=== PATIENT | female | born 1940 | race Caucasian/White ===

== ENCOUNTER → 2016-10-25 | Outpatient (CLI) | payer MEDICARE ==
--- NOTE | 2016-10-25 16:00 | US ---
EXAMINATION TYPE: US thyroid st tissue head/neck DATE OF EXAM: 10/25/2016 3:19 PM COMPARISON: 04/05/2016 CLINICAL HISTORY: 76-year-old female, follow up TECHNIQUE: Multiple sonographic images of the thyroid gland are obtained. FINDINGS: GLAND SIZE: Right Lobe: 4.6 x 2.1 x 2.2 cm Left Lobe: 4.9 x 1.7 x 1.8 cm Isthmus Thickness: 0.4 cm There is heterogeneous glandular parenchyma. NODULES RIGHT: # of nodules measured on right: 2 1. 1.6 X 1.2 x 1.3 cm heterogeneous, primarily solid nodule at the mid pole. This shows intranwider than tallity. Priintranodular vascularity3 cm 2. 1.2 X 1.1.7x 11.9cm 1.3heterogeneous, primarily solid nodule within the posterior lower pole. Thi s nodule shows intrataller than wideity. Printranodular vascularity.4 cm . LEFT: 1.2f n1.ules1.easured on left: 0 ISTHMUS: # of nodules [id number] in the isthmus: 1 1. 0.7 X 0.4 x 0.8 cm hypoechoic solid no0.4e towards the right. Thpoorly definedider than l and s hows intranwider than tallity. Prior 0.8 x 0.6 x 0.8 cm IMPRESSION: 1. A total of 2 nodules redemonstrated within the right lobe of the thyroid gland measuring up to 1.6 cm; these are essentially stable. 2. Solitary 8 mm solid nodule within the right thyroid isthmus is also stable.
== END | disposition home or self-care (01) ==
LOC: RADUSWWP 14:51
PROVIDERS: ATTEND Internal Medicine Endocrinology, Diabetes & Metabolism
DX: E04.2 Nontoxic multinodular goiter (principal)
CPT/HCPCS: 76536

== ENCOUNTER → 2016-12-04 | Outpatient (CLI) | payer MEDICARE ==
[~2016-12-04] MED LIST: DENOSUMAB 60 MG/ML 1 ML SYRINGE SQ ONE
[2016-12-04 09:18] VITALS: BP 137/62; PULSE 64; RESP 16; TEMP 98.7
== END | disposition home or self-care (01) ==
LOC: PROCWHC3 08:49
PROVIDERS: ATTEND Family Medicine
DX: M81.0 Age-related osteoporosis without current pathological fracture (principal)
CPT/HCPCS: 96372; J0897

== ENCOUNTER → 2017-03-01 | Outpatient (CLI) | payer MEDICARE ==
[2017-03-01 09:13] LABS: Appearance,Urine Cloudy (Clear); Bacteria,Urine Many /hpf; Bilirubin,Urine Negative (Negative); Glucose,Urine (UA) Negative (Negative); Ketones,Urine Negative (Negative); Leukocyte Esterase,Urine Large (Negative); Mucus,Urine Rare /hpf; Nitrite,Urine Negative (Negative); Particle Count 2601; Protein,Urine 1+ (Negative); RBC,Urine 10 /hpf (0-5); Specific Gravity,Urine 1.013 (1.001-1.035); UA Billing (MACRO vs. MICRO) MICRO; Urobilinogen,Urine <2.0 mg/dL (<2.0); WBC,Urine >182 /hpf (0-5)
[2017-03-01 09:17] LABS: Basophils # (A) 0.1 k/uL (0-0.2); Basophils % (A) 1 %; CH 28.7; Eosinophils # (A) 0.2 k/uL (0-0.7); Eosinophils % (A) 3 %; HCT 38.1 % (34.0-46.0); HDW 2.81; HGB 12.2 gm/dL (11.4-16.0); Luc # (Auto) 0.13; Luc % (Auto) 2; Lymphocytes # (A) 1.1 k/uL (1.0-4.8); Lymphocytes % (A) 18 %; MCH 28.9 pg (25.0-35.0); MCV 90.2 fL (80.0-100.0); Mean Platelet Volume 6.9; Monocytes # (A) 0.3 k/uL (0-1.0); Monocytes % (A) 5 %; Neutrophils # (A) 4.7 k/uL (1.3-7.7); Neutrophils % (A) 72 %; RBC 4.22 m/uL (3.80-5.40); WBC 6.5 k/uL (3.8-10.6); WBC (Perox) 6.92
[2017-03-01 12:29] LABS: Calcium 9.2 mg/dL (8.4-10.2); Magnesium 2.3 mg/dL (1.6-2.3); Phosphorous 4.7 mg/dL (2.5-4.5); Potassium 5.2 mmol/L (3.5-5.1); Uric Acid 5.1 mg/dL (3.7-7.4)
[2017-03-01 12:37] LABS: % Iron Saturation 35.6 % (20-50)
== END | disposition home or self-care (01) ==
LOC: LABWHC1 08:16
PROVIDERS: ATTEND Nurse Practitioner Family
DX: E21.3 Hyperparathyroidism, unspecified (principal); D64.9 Anemia, unspecified; E55.9 Vitamin D deficiency, unspecified; M10.9 Gout, unspecified; N39.0 Urinary tract infection, site not specified; N18.3 Chronic kidney disease, stage 3 (moderate)
CPT/HCPCS: 36415; 80048; 81001; 82306; 82728; 83540; 83550; 83735; 83970; 84100; 84550; 85025

== ENCOUNTER → 2017-03-18 | Outpatient (CLI) | payer MEDICARE ==
[2017-03-18 11:03] LABS: Calcium 9.7 mg/dL (8.4-10.2); Potassium 4.6 mmol/L (3.5-5.1)
== END | disposition home or self-care (01) ==
LOC: LABWHC1 09:45
PROVIDERS: ATTEND Internal Medicine Nephrology
DX: N18.3 Chronic kidney disease, stage 3 (moderate) (principal)
CPT/HCPCS: 36415; 80048

== ENCOUNTER → 2017-05-02 | Outpatient (CLI) | payer MEDICARE ==
[2017-05-02 08:57] LABS: Basophils # (A) 0.1 k/uL (0-0.2); Basophils % (A) 1 %; CH 28.2; Eosinophils # (A) 0.1 k/uL (0-0.7); Eosinophils % (A) 2 %; HCT 36.2 % (34.0-46.0); HDW 2.88; HGB 11.7 gm/dL (11.4-16.0); Luc % (Auto) 2; Lymphocytes # (A) 1.2 k/uL (1.0-4.8); Lymphocytes % (A) 17 %; MCH 28.6 pg (25.0-35.0); MCHC 32.2 g/dL (31.0-37.0); MCV 88.7 fL (80.0-100.0); Mean Platelet Volume 7.3; Monocytes # (A) 0.3 k/uL (0-1.0); Monocytes % (A) 5 %; Neutrophils % (A) 74 %; RBC 4.08 m/uL (3.80-5.40); RDW 14.7 % (11.5-15.5); WBC 6.7 k/uL (3.8-10.6); WBC (Perox) 7.07
[2017-05-02 09:23] LABS: Appearance,Urine Cloudy (Clear); Bacteria,Urine Rare /hpf; Bilirubin,Urine Negative (Negative); Glucose,Urine (UA) Negative (Negative); Granular Casts,Urine 1 /lpf (0); Ketones,Urine Negative (Negative); Leukocyte Esterase,Urine Large (Negative); Mucus,Urine Rare /hpf; Nitrite,Urine Negative (Negative); Particle Count 10009; Protein,Urine Trace (Negative); RBC,Urine 13 /hpf (0-5); Specific Gravity,Urine 1.013 (1.001-1.035); Squamous Epithelial Cell,Urine 4 /hpf (0-4); UA Billing (MACRO vs. MICRO) MICRO; Urobilinogen,Urine <2.0 mg/dL (<2.0); WBC,Urine 36 /hpf (0-5)
[2017-05-02 10:31] LABS: Calcium 8.4 mg/dL (8.4-10.2); Magnesium 2.2 mg/dL (1.6-2.3); Phosphorous 3.5 mg/dL (2.5-4.5); Uric Acid 4.1 mg/dL (3.7-7.4)
[2017-05-02 10:41] LABS: % Iron Saturation 19.6 % (20-50)
== END | disposition home or self-care (01) ==
LOC: LABWHC1 08:24
PROVIDERS: ATTEND Internal Medicine Nephrology
DX: N18.3 Chronic kidney disease, stage 3 (moderate) (principal); D64.9 Anemia, unspecified; E55.9 Vitamin D deficiency, unspecified; E21.3 Hyperparathyroidism, unspecified; M10.9 Gout, unspecified; N39.0 Urinary tract infection, site not specified
CPT/HCPCS: 36415; 80048; 81001; 82306; 82728; 83540; 83550; 83735; 83970; 84100; 84550; 85025

== ENCOUNTER 2017-05-22 13:39 | Inpatient (IN) | payer MEDICARE ==
[2017-05-22 15:17] LABS: Basophils # (A) 0.1 k/uL (0-0.2); Basophils % (A) 1 %; CH 29.7; CHCM 33.3; Eosinophils # (A) 0.1 k/uL (0-0.7); Eosinophils % (A) 1 %; HCT 36.9 % (34.0-46.0); HDW 2.89; HGB 11.8 gm/dL (11.4-16.0); Luc # (Auto) 0.12; Luc % (Auto) 2; Lymphocytes # (A) 1.4 k/uL (1.0-4.8); Lymphocytes % (A) 18 %; MCH 28.7 pg (25.0-35.0); MCV 89.6 fL (80.0-100.0); Mean Platelet Volume 7.6; Monocytes # (A) 0.3 k/uL (0-1.0); Monocytes % (A) 4 %; Neutrophils # (A) 5.7 k/uL (1.3-7.7); Neutrophils % (A) 74 %; RBC 4.11 m/uL (3.80-5.40); RDW 15.2 % (11.5-15.5); WBC 7.7 k/uL (3.8-10.6); WBC (Perox) 7.71
--- NOTE | 2017-05-22 15:24 | XR ---
EXAMINATION TYPE: XR chest 2V DATE OF EXAM: 05/22/2017 COMPARISON: 10/20/2012 TECHNIQUE: PA and lateral views submitted. HISTORY: Difficulty breathing FINDINGS: There is elevation the right hemidiaphragm with subsegmental consolidation. Linear changes left lung base most typical atelectasis. No pneumothorax. Heart size stable. Atherosclerotic change aorta and d iffuse osteopenia. Arthropathy of the shoulders. Hypertrophic and degenerative changes of the spine. Surgical clips are seen in the abdomen. IMPRESSION: 1. Subsegmental right. Hilar lower lobe atelectasis or early infiltrate correlate clinically.
[2017-05-22 15:26] LABS: Calcium 9.6 mg/dL (8.4-10.2); Total Bilirubin 0.4 mg/dL (0.2-1.3); Total Protein 6.6 g/dL (6.3-8.2)
[2017-05-22 15:27] LABS: INR 0.9 (<1.2); Partial Thromboplastin Time 24.7 sec (22.0-30.0); Prothrombin Time 9.7 sec (9.0-12.0)
[2017-05-22 15:39] LABS: Creatine Kinase 58 U/L (30-135)
[2017-05-22 15:52] LABS: Creatine Kinase MB 2.3 ng/mL (0.0-2.4); Troponin I <0.012 ng/mL (0.000-0.034)
[2017-05-22 15:53] LABS: Appearance,Urine Clear (Clear); Bacteria,Urine Rare /hpf; Bilirubin,Urine Negative (Negative); Glucose,Urine (UA) Negative (Negative); Ketones,Urine Negative (Negative); Leukocyte Esterase,Urine Moderate (Negative); Mucus,Urine Rare /hpf; Nitrite,Urine Negative (Negative); Particle Count 894; Protein,Urine Negative (Negative); RBC,Urine 1 /hpf (0-5); Specific Gravity,Urine 1.004 (1.001-1.035); Squamous Epithelial Cell,Urine <1 /hpf (0-4); UA Billing (MACRO vs. MICRO) MICRO; Urobilinogen,Urine <2.0 mg/dL (<2.0); WBC,Urine 5 /hpf (0-5)
[2017-05-22] MEDS ORDERED: RX INFO: IV CONTRAST WAS GIVEN 1 EACH MISC MISCELLANE PRN (16:25)
[2017-05-22] MEDS ORDERED: PNEUMONIA PROTOCOL UTILIZED 1 EACH MISC PO PRN (16:30)
[2017-05-22] MEDS ORDERED: AZITHROMYCIN 500 MG in SODIUM CHLORIDE 0.9% 250 ML IVPB STA (16:30)
[2017-05-22] MEDS ORDERED: IPRATROPIUM-ALBUTEROL 3 ML NEB INHALATION PRN (16:30)
--- NOTE | 2017-05-22 16:48 | ED ---
General Adult HPI - General Chief complaint: Shortness of Breath Stated complaint: SOB Time Seen by Provider: 05/22/17 13:59 Source: patient, RN notes reviewed Mode of arrival: ambulatory Limitations: no limitations - History of Present Illness Initial comments: 77-year-old female presents with 2 days of worsening dyspnea. Patient does state she had some right shoulder and neck pain which was nontraumatic. This is resolved. She denies chest pain. Denies fever or chills. Denies cough. Shortness of breath is worse with exertion, worse while lying flat. She does have a past medical history of diabetes, CK-MB, and hypertension. There is no known history of CAD. No complaints of lower extremity swelling. No recent travel. - Related Data Home Medications Medication Instructions Recorded Confirmed Allopurinol [Zyloprim] 300 mg PO DAILY 04/22/14 05/22/17 Calcium Citrate/Vitamin D3 1 each PO DAILY 04/22/14 05/22/17 [Calcium Citrate - Vit D3 Tab] Ergocalciferol [Vitamin D2 50,000 unit PO Q30D 04/22/14 05/22/17 (DRISDOL)] Insulin Aspart [NovoLOG] See Protocol SQ ACHS PRN 04/22/14 05/22/17 Insulin Detemir [Levemir] 20 unit SQ HS 04/22/14 05/22/17 Simvastatin [Zocor] 40 mg PO HS 04/22/14 05/22/17 Aspirin EC [Ecotrin] 81 mg PO HS 04/25/15 05/22/17 Denosumab [Prolia] 60 mg SQ ONCE 12/30/15 05/22/17 amLODIPine [Norvasc] 5 mg PO DAILY 12/30/15 05/22/17 Calcitriol [Rocaltrol] 0.25 mcg PO MOWEFR 05/22/17 05/22/17 Lisinopril [Zestril] 2.5 mg PO HS 05/22/17 05/22/17 Sodium Bicarbonate Tab 650 mg PO DAILY 05/22/17 05/22/17 Turmeric Root Extract [Turmeric] 500 mg PO DAILY 05/22/17 05/22/17 Allergies Allergy/AdvReac Type Severity Reaction Status Date / Time celecoxib [From Celebrex] Allergy Rash/Hives Verified 05/22/17 14:18 Sulfa (Sulfonamide Allergy Rash/Hives Verified 05/22/17 14:18 Antibiotics) valdecoxib [From Bextra] Allergy Rash/Hives Verified 05/22/17 14:18 metformin AdvReac Nausea Verified 05/22/17 14:18 Review of Systems ROS Statement: Those systems with pertinent positive or pertinent negative responses have been documented in the HPI. ROS Other: All systems not noted in ROS Statement are negative. Past Medical History Past Medical History: Cancer, Diabetes Mellitus, Hyperlipidemia, Hypertension, Renal Disease, Sleep Apnea/CPAP/BIPAP Additional Past Medical History / Comment(s): skin cancer, kidney stones History of Any Multi-Drug Resistant Organisms: None Reported Past Surgical History: Bowel Resection Additional Past Surgical History / Comment(s): ileostomy, rectal removal, left kidney removed Past Anesthesia/Blood Transfusion Reactions: No Reported Reaction Past Psychological History: No Psychological Hx Reported Smoking Status: Former smoker Past Alcohol Use History: None Reported Past Drug Use History: None Reported General Exam Limitations: no limitations General appearance: alert (Mild respiratory distress), in distress Head exam: Present: atraumatic, normocephalic Eye exam: Present: normal appearance, PERRL. Absent: scleral icterus ENT exam: Present: normal exam, mucous membranes moist Neck exam: Present: normal inspection, full ROM Respiratory exam: Present: normal lung sounds bilaterally, respiratory distress. Absent: wheezes Cardiovascular Exam: Present: regular rate, normal rhythm, normal heart sounds GI/Abdominal exam: Present: soft, distended Extremities exam: Present: normal inspection, normal capillary refill. Absent: pedal edema, calf tenderness Neurological exam: Present: alert, oriented X3, CN II-XII intact. Absent: motor sensory deficit Psychiatric exam: Present: normal affect, normal mood Skin exam: Present: warm, dry. Absent: cyanosis, diaphoretic Course Vital Signs 05/22/17 05/22/17 05/22/17 13:41 14:09 14:43 Temperature 97.6 F Pulse Rate 85 100 Respiratory 20 18 20 Rate Blood Pressure 199/86 158/97 O2 Sat by Pulse 94 L 100 Oximetry 05/22/17 16:25 Temperature 97.7 F Pulse Rate 68 Respiratory 18 Rate Blood Pressure 158/68 O2 Sat by Pulse 97 Oximetry EKG Findings - EKG Comments: EKG Findings:: EKG shows normal sinus rhythm, ventricular rate of 72, ID interval 184, QRS duration 98, QTC 418, is T-wave abnormality noted in lead 3, no ST segment elevation or depression Medical Decision Making - Medical Decision Making 77-year-old female presenting with dyspnea over the past several days. Worse while lying flat, and with exertion. Patient denies chest pain but did have some right shoulder and neck pain which is resolved at this time. Laboratory studies reveal normal CBC, CMP, cardiac enzymes and BNP. D-dimer is negative, however there is still some concern for pulmonary embolism. Patient will receive CT angiography while in the emergency department to evaluate for PE. Chest x-ray shows right hilar infiltrate concerning for pneumonia. Patient will be started on antibiotics to cover community-acquired pneumonia. She will be admitted to the hospital for dyspnea secondary to pneumonia with hypoxia. CT angiography is pending results will be signed out to the oncoming physician Dr. Shen. Diagnosis: Community acquired pneumonia with hypoxia - Lab Data Result diagrams: 05/22/17 14:05 05/22/17 14:05 Lab Results 05/22/17 05/22/17 05/22/17 Range/Units 14:05 14:05 14:05 WBC 7.7 (3.8-10.6) k/uL RBC 4.11 (3.80-5.40) m/uL Hgb 11.8 (11.4-16.0) gm/dL Hct 36.9 (34.0-46.0) % MCV 89.6 (80.0-100.0) fL MCH 28.7 (25.0-35.0) pg MCHC 32.0 (31.0-37.0) g/dL RDW 15.2 (11.5-15.5) % Plt Count 160 (150-450) k/uL Neutrophils % 74 % Lymphocytes % 18 % Monocytes % 4 % Eosinophils % 1 % Basophils % 1 % Neutrophils # 5.7 (1.3-7.7) k/uL Lymphocytes # 1.4 (1.0-4.8) k/uL Monocytes # 0.3 (0-1.0) k/uL Eosinophils # 0.1 (0-0.7) k/uL Basophils # 0.1 (0-0.2) k/uL PT (9.0-12.0) sec INR (<1.2) APTT (22.0-30.0) sec D-Dimer (<0.60) mg/L FEU Sodium 140 (137-145) mmol/L Potassium 4.0 (3.5-5.1) mmol/L Chloride 109 H (98-107) mmol/L Carbon Dioxide 21 L (22-30) mmol/L Anion Gap 10 mmol/L BUN 24 H (7-17) mg/dL Creatinine 1.27 H (0.52-1.04) mg/dL Est GFR (MDRD) Af Amer 50 (>60 ml/min/1.73 sqM) Est GFR (MDRD) Non-Af 41 (>60 ml/min/1.73 sqM) Glucose 77 (74-99) mg/dL Calcium 9.6 (8.4-10.2) mg/dL Total Bilirubin 0.4 (0.2-1.3) mg/dL AST 18 (14-36) U/L ALT 29 (9-52) U/L Alkaline Phosphatase 68 (38-126) U/L Total Creatine Kinase 58 (30-135) U/L CK-MB (CK-2) 2.3 (0.0-2.4) ng/mL CK-MB (CK-2) Rel Index 4.0 Troponin I <0.012 (0.000-0.034) ng/mL NT-Pro-B Natriuret Pep pg/mL Total Protein 6.6 (6.3-8.2) g/dL Albumin 4.1 (3.5-5.0) g/dL Urine Color Urine Appearance (Clear) Urine pH (5.0-8.0) Ur Specific [place] (1.001-1.035) Urine Protein (Negative) Urine Glucose (UA) (Negative) Urine Ketones (Negative) Urine Blood (Negative) Urine Nitrite (Negative) Urine Bilirubin (Negative) Urine Urobilinogen (<2.0) mg/dL Ur Leukocyte Esterase (Negative) Urine RBC (0-5) /hpf Urine WBC (0-5) /hpf Ur Squamous Epith Cells (0-4) /hpf Urine Bacteria (None) /hpf Urine Mucus (None) /hpf 05/22/17 05/22/17 05/22/17 Range/Units 14:05 14:05 15:46 WBC (3.8-10.6) k/uL RBC (3.80-5.40) m/uL Hgb (11.4-16.0) gm/dL Hct (34.0-46.0) % MCV (80.0-100.0) fL MCH (25.0-35.0) pg MCHC (31.0-37.0) g/dL RDW (11.5-15.5) % Plt Count (150-450) k/uL Neutrophils % % Lymphocytes % % Monocytes % % Eosinophils % % Basophils % % Neutrophils # (1.3-7.7) k/uL Lymphocytes # (1.0-4.8) k/uL Monocytes # (0-1.0) k/uL Eosinophils # (0-0.7) k/uL Basophils # (0-0.2) k/uL PT 9.7 (9.0-12.0) sec INR 0.9 (<1.2) APTT 24.7 (22.0-30.0) sec D-Dimer 0.28 (<0.60) mg/L FEU Sodium (137-145) mmol/L Potassium (3.5-5.1) mmol/L Chloride (98-107) mmol/L Carbon Dioxide (22-30) mmol/L Anion Gap mmol/L BUN (7-17) mg/dL Creatinine (0.52-1.04) mg/dL Est GFR (MDRD) Af Amer (>60 ml/min/1.73 sqM) Est GFR (MDRD) Non-Af (>60 ml/min/1.73 sqM) Glucose (74-99) mg/dL Calcium (8.4-10.2) mg/dL Total Bilirubin (0.2-1.3) mg/dL AST (14-36) U/L ALT (9-52) U/L Alkaline Phosphatase (38-126) U/L Total Creatine Kinase (30-135) U/L CK-MB (CK-2) (0.0-2.4) ng/mL CK-MB (CK-2) Rel Index Troponin I (0.000-0.034) ng/mL NT-Pro-B Natriuret Pep 153 pg/mL Total Protein (6.3-8.2) g/dL Albumin (3.5-5.0) g/dL Urine Color Colorless Urine Appearance Clear (Clear) Urine pH 5.0 (5.0-8.0) Ur Specific [place] 1.004 (1.001-1.035) Urine Protein Negative (Negative) Urine Glucose (UA) Negative (Negative) Urine Ketones Negative (Negative) Urine Blood Negative (Negative) Urine Nitrite Negative (Negative) Urine Bilirubin Negative (Negative) Urine Urobilinogen <2.0 (<2.0) mg/dL Ur Leukocyte Esterase Moderate H (Negative) Urine RBC 1 (0-5) /hpf Urine WBC 5 (0-5) /hpf Ur Squamous Epith Cells <1 (0-4) /hpf Urine Bacteria Rare H (None) /hpf Urine Mucus Rare H (None) /hpf Disposition Clinical Impression: Community acquired pneumonia Disposition: ADMITTED IP TO THIS [facility] Condition: Stable Referrals: Nithin Monroe DO [Primary Care Provider] - 1-2 days Decision to Admit Reason: Admit from EC Decision Date: 05/22/17 Decision Time: 16:15
--- NOTE | 2017-05-22 17:39 | CT ---
EXAMINATION TYPE: CT angio chest DATE OF EXAM: 05/22/2017 COMPARISON: NONE HISTORY: Difficulty breathing x [address] DLP: 419.70 mGycm. Automated Exposure Control for Dose Reduction was Utilized. CONTRAST: CTA scan of the thorax is performed with IV Contrast, patient injected with 50 mL of Visipaque 320, p ulmonary embolism protocol. MIP Images are created on CT scanner and reviewed. FINDINGS: LUNGS: Elevated right hemidiaphragm is present. Motion artifact is seen making evaluation suboptimal particularly for subcentimeter nodules. There is suspicious nodule measuring 1.1 x 0.8 cm in the righ t upper lobe anteriorly on axial image 24 noted. There is additional low dense right middle lobe basi lar nodule or nodular consolidation measuring 1.1 x 1.0 cm on axial image 71. There is linear scarrin g and/or atelectasis throughout both lungs most prominent in the bases. No pleural effusion or pneumo thorax is present bilaterally. Tracheobronchial tree is patent MEDIASTINUM: There is suboptimal bolus as bright as contrast is seen pooling in SVC with no large brigido tral pulmonary embolism. Smaller segmental and subsegmental pulmonary embolism cannot be excluded on this exam. There is abnormal irregular fluid or soft tissue in the anterior superior mediastinum ante rior to the left brachiocephalic vein could reflect fluid or irregular adenopathy, Hounsfield units a re difficult to accurately measure but I get numbers between 40 and 60. Hematoma would need to be con sidered in the appropriate clinical setting. There are calcified subcentimeter paratracheal and right hilar lymph nodes seen. No pericardial effusion is seen. Heart size is mildly enlarged. There is mod erate left atrial dilatation. Coronary artery calcification is seen which is noted marker for coronar y artery disease. OTHER: There is nonspecific slight nodular thickening to left adrenal gland. Surgical clips possibly from left-sided nephrectomy are partially imaged below this. There is mild calcified plaque of the vi sualized abdominal aorta extending into the abdominal branch vessels. There is moderate multilevel sp urring in the thoracic spine. Some minimal fat stranding in bilateral axillary is present. Cannot exc lude inflammation or infectious process. IMPRESSION: 1. Suboptimal study, no large central pulmonary embolism, smaller segmental and subsegmental pulmonar y embolism cannot be excluded on this exam. 2. Cardiomegaly with moderate left atrial dilatation and elevated right hemidiaphragm. Scattered area s of atelectasis and/or scarring are seen most pronounced in the right lung. Areas of nodularity righ t lung are seen, neoplasm cannot be excluded, PET CT follow-up advised. 3. Possible small amount anterior superior mediastinal fluid or hematoma versus low dense irregular c onfluent adenopathy. Clinical correlation advised. Hemoglobin monitoring recommended.
[2017-05-22 20:48] LABS: Glucose,Whole Blood 121 mg/dL (75-99)
[2017-05-22] MEDS: ASPIRIN 81 MG PO SCH (21:14)
[2017-05-22] MEDS: ATORVASTATIN 20 MG TAB PO SCH (21:14)
[2017-05-22] MEDS: INSULIN DETEMIR 100 UNIT/ML 10 ML VIAL SQ SCH (21:15)
[2017-05-22] MEDS: INSULIN LISPRO (humaLOG) 300 UNIT/3 ML VIAL SQ SCH (21:15)
[2017-05-22] MEDS: LISINOPRIL 2.5 MG TAB PO SCH (21:15)
[2017-05-22 21:21] LABS: Hemoglobin A1C 6.5 % (4.2-6.1)
--- NOTE | 2017-05-22 23:33 | P.HPIM ---
History of Present Illness H&P Date: 05/22/17 Chief Complaint: Short of breath History of presenting complaint: This is a very pleasant 77-year-old patient of Dr. Monroe. Chronic stable medical conditions include diabetes, hyperlipidemia, hypertension, obstructive sleep apnea uses a machine, and a colostomy bag from surgery. Colitis. Patient for 2 days and getting increasingly short of breath no cough some achiness in the neck and the right shoulder area no edema no fever, no chest pain. Getting bothered hence decided to come to the ER. GEN.: Tired EYES: None HEENT: None NECK: [Right-sided neck pain and shoulder pain RESPIRATORY: As above CARDIOVASCULAR: None GASTROINTESTINAL: None GENITOURINARY: None MUSCULOSKELETAL: None LYMPHATICS: None HEMATOLOGICAL: None PSYCHIATRY: None NEUROLOGICAL: None Past medical history: Diabetes mellitus type 2, hyperlipidemia, hypertension, obstructive sleep apnea , ulcerative colitis leading to surgery and colostomy, eczema Past surgical history: 1995 bowels surgery with ileostomy, left nephrectomy lithotripsy Home medications: Reviewed in the computer ALLERGIES: Celebrex, sulfa, metformin VITAL SIGNS: 97.6, 85, 20, 199/86, 94% room air. Repeat blood pressure 150/97 GENERAL: Well-built, BMI 30.4 laying in bed not in distress,. EYES: Pupils equal. Conjunctiva normal. HEENT: External appearance of nose and ears normal, oral cavity grossly normal. NECK: JVD not raised; masses not palpable. HEART: First and second heart sounds are normal; no edema. LUNGS: Respiratory rate normal; clear to auscultation. ABDOMEN: Soft, nontender, liver spleen not palpable, no masses palpable, ileostomy in place. LYMPHATICS: No lymph nodes palpable in the axilla and neck. PSYCH: Alert and oriented x3; mood and affect normal. NEUROLOGICAL: Cranial nerves grossly intact; no facial asymmetry, power and sensation grossly intact. Investigations: White count 7.7 hemoglobin 11.8 potassium 4 be an 24 creatinine 1.27 EKG-unremarkable Chest x-ray reviewed showed elevated right diaphragm some fullness of the right hilum Chest CTA-right hemidiaphragm elevated some right lung nodules, some of the abnormal findings Assessment: -This is a patient who presents with 2 days of worsening short of breath no cough no fever no sputum production associated with elevated diaphragm on the x- ray and the computed tomography scan with some lung nodules. It's possible patient may have underlying malignancy manifesting like this. -Diabetes was type II on oral hypoglycemic Hyperlipidemia -Essential hypertension Obstructive sleep apnea uses CPAP machine -Ulcerative colitis leading to surgery with resultant ileostomy Plan: We'll order 2-D echocardiogram. Pulmonary and cardiology is consulted. Care was discussed with the patient. Additionally need a repeat computed tomography scan of the chest on a bronchoscopy for further workup.. Past Medical History Past Medical History: Cancer, Diabetes Mellitus, Hyperlipidemia, Hypertension, Renal Disease, Sleep Apnea/CPAP/BIPAP Additional Past Medical History / Comment(s): skin cancer, kidney stones, PAST ULCERATIVE COLITIS(HAD SX), ECZEMA, RT ARM FX-CASTED ,MILTON CATARACTS, LT EYE MAC DEGENERTAION History of Any Multi-Drug Resistant Organisms: None Reported Past Surgical History: Bowel Resection Additional Past Surgical History / Comment(s): 1995 BOWEL SX W/ileostomy,2011 HAD RECTUM SX CLOSED OFF, HAD A DRAINAGE TUBE PLACED LT KIDNEY TO RELIEVE SOME PRESSURE BUT ENDED UP HAVING THE left kidney removed "IT WAS A KIDNEY",D&C , LITHOTRIPSY,?APPY, COLONOSCOPY Past Anesthesia/Blood Transfusion Reactions: No Reported Reaction Smoking Status: Former smoker - Past Family History Father Family Medical History: Diabetes Mellitus Additional Family Medical History / Comment(s): ULCERATIVE COLITIS. Mother Family Medical History: Coronary Artery Disease (CAD) Additional Family Medical History / Comment(s): CARDIAC STENTS. FROM A BRAIN BLEED POST FALL Medications and Allergies Home Medications Medication Instructions Recorded Confirmed Type Allopurinol [Zyloprim] 300 mg PO DAILY 04/22/14 05/22/17 History Calcium Citrate/Vitamin D3 1 each PO DAILY 04/22/14 05/22/17 History [Calcium Citrate - Vit D3 Tab] Ergocalciferol [Vitamin D2 50,000 unit PO Q30D 04/22/14 05/22/17 History (DRISDOL)] Insulin Aspart [NovoLOG] See Protocol SQ ACHS PRN 04/22/14 05/22/17 History Insulin Detemir [Levemir] 20 unit SQ HS 04/22/14 05/22/17 History Simvastatin [Zocor] 40 mg PO HS 04/22/14 05/22/17 History Aspirin EC [Ecotrin] 81 mg PO HS 04/25/15 05/22/17 History Denosumab [Prolia] 60 mg SQ ONCE 12/30/15 05/22/17 History amLODIPine [Norvasc] 5 mg PO DAILY 12/30/15 05/22/17 History Calcitriol [Rocaltrol] 0.25 mcg PO MOWEFR 05/22/17 05/22/17 History Lisinopril [Zestril] 2.5 mg PO HS 05/22/17 05/22/17 History Sodium Bicarbonate Tab 650 mg PO DAILY 05/22/17 05/22/17 History Turmeric Root Extract [Turmeric] 500 mg PO DAILY 05/22/17 05/22/17 History Allergies Allergy/AdvReac Type Severity Reaction Status Date / Time celecoxib [From Celebrex] Allergy Rash/Hives Verified 05/22/17 14:18 Sulfa (Sulfonamide Allergy Rash/Hives Verified 05/22/17 14:18 Antibiotics) valdecoxib [From Bextra] Allergy Rash/Hives Verified 05/22/17 14:18 metformin AdvReac Nausea Verified 05/22/17 14:18 Results CBC & Chem 7: 05/22/17 14:05 05/22/17 14:05
[2017-05-23 07:21] LABS: Glucose,Whole Blood 95 mg/dL (75-99)
[2017-05-23] MEDS: SODIUM BICARBONATE TAB 650 MG TAB PO SCH (08:26)
[2017-05-23] MEDS: ALLOPURINOL 300 MG TAB PO SCH (08:26)
[2017-05-23] MEDS: amLODIPine 5 MG TAB PO SCH (08:26)
[2017-05-23] MEDS: INSULIN LISPRO (humaLOG) 300 UNIT/3 ML VIAL SQ SCH ×4 (08:27→21:54)
--- NOTE | 2017-05-23 09:16 | XR ---
EXAMINATION TYPE: XR chest 2V DATE OF EXAM: 05/23/2017 COMPARISON: 05/22/2017 TECHNIQUE: PA and lateral views submitted. HISTORY: Difficulty breathing FINDINGS: Right lower lobe infiltrate and small effusion. Cannot exclude a small nodule overlying the right upp er lobe measuring 8 mm. Left lung clear. Atherosclerotic change aorta. Stable heart size. Hypertrophi c and degenerative change of the spine. IMPRESSION: 1. Findings suspicious for a 1 cm upper lobe pulmonary nodule. This has a suspicious appearance. 2. Right lower lobe infiltrate and small effusion.
--- NOTE | 2017-05-23 11:05 | ECHOF ---
Referral Reason:SOB MEASUREMENTS -------- HEIGHT: 132.1 cm WEIGHT: 86.2 kg BP: 143/94 RVIDd: 4.2 cm (< 3.3) IVSd: 1.4 cm (0.6 - 1.1) LVIDd: 2.7 cm (3.9 - 5.3) LVPWd: 1.2 cm (0.6 - 1.1) IVSs: 1.8 cm LVIDs: 1.6 cm LVPWs: 1.7 cm LAESV Index (A-L): 39.61 ml/m Ao Diam: 2.4 cm (2.0 - 3.7) AV Cusp: 1.4 cm (1.5 - 2.6) LA Diam: 3.3 cm (2.7 - 3.8) MV EXCURSION: 10.412 mm (> 18.000) MV EF SLOPE: 67 mm/s (70 - 150) EPSS: 0.7 cm MV E Nas: 1.11 m/s MV DecT: 170 ms MV A Nas: 1.04 m/s MV E/A Ratio: 1.07 RAP: 5.00 mmHg RVSP: 9.20 mmHg FINDINGS -------- Sinus rhythm. This was a technically good study. There is mild concentric left ventricular hypertrophy. Overall left ventricular systolic function is normal with, an EF between 55 - 60 %. The right ventricle is mildly enlarged. LA is moderately dilated 34-39 ml/m2 The right atrium is normal in size. Aortic valve is trileaflet and is mildly thickened. The mitral valve leaflets are mildly thickened. Mild mitral annular calcification present. Mild mitral regurgitation is present. Mild tricuspid regurgitation present. The right ventricular systolic pressure, as measured by Doppler, is 9.20mmHg. Pulmonic valve appears structurally normal. The aortic root size is normal. Normal inferior vena cava with normal inspiratory collapse consistent with estimated right atrial pressure of 5 mmHg. The pericardium is normal. CONCLUSIONS -------- 1. Sinus rhythm. 2. Mild tricuspid regurgitation present. 3. The right ventricular systolic pressure, as measured by Doppler, is 9.20mmHg. 4. Pulmonic valve appears structurally normal. 5. The aortic root size is normal. 6. Normal inferior vena cava with normal inspiratory collapse consistent with estimated right atrial pressure of 5 mmHg. 7. The pericardium is normal. 8. This was a technically good study. 9. There is mild concentric left ventricular hypertrophy. 10. Overall left ventricular systolic function is normal with, an EF between 55 - 60 %. 11. LA is moderately dilated 34-39 ml/m2 12. The right atrium is normal in size. 13. Aortic valve is trileaflet and is mildly thickened. 14. The mitral valve leaflets are mildly thickened. 15. Mild mitral regurgitation is present. GYM TEACHER: Vicki Barreto RDCS
[2017-05-23 12:05] LABS: Glucose,Whole Blood 139 mg/dL (75-99)
[2017-05-23] MEDS: CALCIUM CARB-VIT D 500MG-200UN 1 EACH TAB PO SCH (12:36)
--- NOTE | 2017-05-23 14:58 | P.CRDCN ---
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 The patient denies any history of coronary artery disease or [place]. She does not follow with a health director. She presented to the emergency department with complaints of increasing shortness of breath. She states this began on Saturday night where she felt a nonspecific pain to the right shoulder radiating up to the right neck. She found it hard to catch her breath at this time as well. She went to sleep without issue woke up in the morning and the pain as well as the shortness of breath were relieved. She got the same pain sensation and shortness of breath again Saturday night. And was up all night tossing and turning. Saturday during the day she attempted to take her dog for a walk which she regularly does and she found it very hard to breathe. She denies any associated dizziness, palpitations, nausea, diaphoresis or vomiting. She states she recently had a stress test per her PCP which was negative. Records were reviewed. An echocardiogram has been ordered per Dr. Arrieta and was complete this morning. BUN 24, creatinine 1.27, Troponin negative times one yesterday at 1400, d-dimer 0.28. Chest x-ray indicates hilar lobe atelectasis or early infiltrate. CTA indicates no pulmonary embolism, smaller segmental and subsegmental pulmonary embolism cannot be excluded, cardiomegaly with moderate left atrial dilation and elevated right hemidiaphragm scattered areas of atelectasis and/or scarring in the right lung, area of nodularity in the right long neoplasm cannot be excluded, small amount of anterior superior mediastinal fluid or hematoma versus low dense irregular confluent adenopathy. Pulmonology is also on consultation. Review of Systems REVIEW OF SYSTEMS: Patient denies any chest discomfort. No diaphoresis. He denies headache, dizziness, blurred vision, double vision. No dyspnea on exertion. Patient denies any stomach discomfort. No nausea, vomiting. No hematochezia. No hematemesis. Denies any black stools or blood in his stools. No syncope. No palpitations. No cough. No recent fever or chills. Denies dysuria or hematuria. No muscle weakness or numbness. Past Medical History Past Medical History: Cancer, Diabetes Mellitus, Hyperlipidemia, Hypertension, Renal Disease, Sleep Apnea/CPAP/BIPAP Additional Past Medical History / Comment(s): skin cancer, kidney stones, PAST ULCERATIVE COLITIS(HAD SX), ECZEMA, RT ARM FX-CASTED ,MILTON CATARACTS, LT EYE MAC DEGENERTAION History of Any Multi-Drug Resistant Organisms: None Reported Past Surgical History: Bowel Resection Additional Past Surgical History / Comment(s): 1995 BOWEL SX W/ileostomy,2011 HAD RECTUM SX CLOSED OFF, HAD A DRAINAGE TUBE PLACED LT KIDNEY TO RELIEVE SOME PRESSURE BUT ENDED UP HAVING THE left kidney removed "IT WAS A KIDNEY",D&C , LITHOTRIPSY,?APPY, COLONOSCOPY Past Anesthesia/Blood Transfusion Reactions: No Reported Reaction Smoking Status: Former smoker - Past Family History Father Family Medical History: Diabetes Mellitus Additional Family Medical History / Comment(s): ULCERATIVE COLITIS. Mother Family Medical History: Coronary Artery Disease (CAD) Additional Family Medical History / Comment(s): CARDIAC STENTS. FROM A BRAIN BLEED POST FALL Medications and Allergies Home Medications Medication Instructions Recorded Confirmed Type Allopurinol [Zyloprim] 300 mg PO DAILY 04/22/14 05/22/17 History Calcium Citrate/Vitamin D3 1 each PO DAILY 04/22/14 05/22/17 History [Calcium Citrate - Vit D3 Tab] Ergocalciferol [Vitamin D2 50,000 unit PO Q30D 04/22/14 05/22/17 History (DRISDOL)] Insulin Aspart [NovoLOG] See Protocol SQ ACHS PRN 04/22/14 05/22/17 History Insulin Detemir [Levemir] 20 unit SQ HS 04/22/14 05/22/17 History Simvastatin [Zocor] 40 mg PO HS 04/22/14 05/22/17 History Aspirin EC [Ecotrin] 81 mg PO HS 04/25/15 05/22/17 History Denosumab [Prolia] 60 mg SQ ONCE 12/30/15 05/22/17 History amLODIPine [Norvasc] 5 mg PO DAILY 12/30/15 05/22/17 History Calcitriol [Rocaltrol] 0.25 mcg PO MOWEFR 05/22/17 05/22/17 History Lisinopril [Zestril] 2.5 mg PO HS 05/22/17 05/22/17 History Sodium Bicarbonate Tab 650 mg PO DAILY 05/22/17 05/22/17 History Turmeric Root Extract [Turmeric] 500 mg PO DAILY 05/22/17 05/22/17 History Allergies Allergy/AdvReac Type Severity Reaction Status Date / Time celecoxib [From Celebrex] Allergy Rash/Hives Verified 05/22/17 14:18 Sulfa (Sulfonamide Allergy Rash/Hives Verified 05/22/17 14:18 Antibiotics) valdecoxib [From Bextra] Allergy Rash/Hives Verified 05/22/17 14:18 metformin AdvReac Nausea Verified 05/22/17 14:18 Physical Exam Vitals: Vital Signs Temp Pulse Pulse Resp BP BP Pulse Ox 05/23/17 07:00 97.9 F 59 L 18 143/64 95 05/22/17 23:00 97.8 F 63 16 150/66 97 05/22/17 19:45 97.1 F L 65 16 179/79 96 05/22/17 19:10 99.3 F 67 20 157/65 96 05/22/17 18:11 57 L 18 177/74 97 05/22/17 17:15 98.3 F 72 20 158/70 97 05/22/17 16:25 97.7 F 68 18 158/68 97 05/22/17 15:45 68 20 158/68 97 05/22/17 14:43 100 20 158/97 100 05/22/17 14:09 18 05/22/17 13:41 97.6 F 85 20 199/86 94 L Intake and Output 05/22/17 05/23/17 05/23/17 22:59 06:59 14:59 Other: Voiding Method Toilet # Voids 1 2 GENERAL: This is a 77-year-old female in no apparent distress at the time of my examination. HEENT: Head is atraumatic, normocephalic. Pupils are equal, round. Sclerae anicteric. Conjunctivae are clear. Mucous membranes of the mouth are moist. Neck is supple. There is no jugular venous distention. No carotid bruit is heard. LUNGS: Clear to auscultation and precussion, diminished bilateral bases. No chest wall tenderness is noted on palpation or with deep breathing. HEART: Regular rate and rhythm without murmurs, rubs or gallops. S1 and S2 heard. ABDOMEN: Soft, nontender. Bowel sounds are heard. No organomegaly noted. EXTREMITIES: 2+ peripheral pulses with no evidence of peripheral edema and no calf tenderness noted. NEUROLOGIC: Patient is awake, alert and oriented x3. Results 05/22/17 14:05 05/22/17 14:05 Cardiac Enzymes 05/22/17 05/22/17 Range/Units 14:05 14:05 AST 18 (14-36) U/L CK-MB (CK-2) 2.3 (0.0-2.4) ng/mL Troponin I <0.012 (0.000-0.034) ng/mL Coagulation 05/22/17 Range/Units 14:05 PT 9.7 (9.0-12.0) sec APTT 24.7 (22.0-30.0) sec CBC 05/22/17 Range/Units 14:05 WBC 7.7 (3.8-10.6) k/uL RBC 4.11 (3.80-5.40) m/uL Hgb 11.8 (11.4-16.0) gm/dL Hct 36.9 (34.0-46.0) % Plt Count 160 (150-450) k/uL Comprehensive Metabolic Panel 05/22/17 Range/Units 14:05 Sodium 140 (137-145) mmol/L Potassium 4.0 (3.5-5.1) mmol/L Chloride 109 H (98-107) mmol/L Carbon Dioxide 21 L (22-30) mmol/L BUN 24 H (7-17) mg/dL Creatinine 1.27 H (0.52-1.04) mg/dL Glucose 77 (74-99) mg/dL Calcium 9.6 (8.4-10.2) mg/dL AST 18 (14-36) U/L ALT 29 (9-52) U/L Alkaline Phosphatase 68 (38-126) U/L Total Protein 6.6 (6.3-8.2) g/dL Albumin 4.1 (3.5-5.0) g/dL Current Medications Generic Name Dose Route Start Last Admin Trade Name Freq PRN Reason Stop Dose Admin Albuterol/Ipratropium 3 ml 05/22/17 16:30 Duoneb 0.5 Mg-3 Mg/3 Ml Soln INHALATION RT-Q4H PRN shortness of breath Allopurinol 300 mg 05/23/17 09:00 05/23/17 08:26 Zyloprim PO 300 mg DAILY FABI Administration Amlodipine Besylate 5 mg 05/23/17 09:00 05/23/17 08:26 Norvasc PO 5 mg DAILY FABI Administration Aspirin 81 mg 05/22/17 21:00 05/22/17 21:14 Aspirin PO 81 mg HS FABI Administration Atorvastatin Calcium 20 mg 05/22/17 21:00 05/22/17 21:14 Lipitor PO 20 mg HS FABI Administration Azithromycin 500 mg 05/23/17 16:00 Zithromax PO DAILY@1600 [facility] Calcitriol 0.25 mcg 05/24/17 12:00 Rocaltrol PO MOWEFR [facility] Calcium Carbonate 1 each 05/23/17 12:00 Oscal 500+D PO DAILY@1200 [facility] Ergocalciferol 50,000 unit 06/14/17 12:00 Vitamin D2 PO Q30D [facility] Ceftriaxone Sodium 1,000 mg/ 50 mls @ 100 mls/hr 05/23/17 16:00 Sodium Chloride IVPB 05/26/17 16:01 Q24H [facility] Insulin Detemir 20 unit 05/22/17 21:00 05/22/17 21:15 Levemir SQ 20 unit HS [facility] Administration Insulin Human Lispro 0 unit 05/22/17 21:00 05/23/17 08:27 Humalog SQ Not Given ACHS [facility] Protocol Lisinopril 2.5 mg 05/22/17 21:00 05/22/17 21:15 Zestril PO 2.5 mg HS FABI Administration Miscellaneous Information 1 each 05/22/17 16:25 05/22/17 17:11 Rx Info: Iv Contrast Was Given MISCELLANE 05/24/17 16:25 1 each DAILY PRN Administration Per Protocol Miscellaneous Information 1 each 05/22/17 16:30 Pneumonia Protocol Utilized PO ONCE PRN Per Protocol Sodium Bicarbonate 650 mg 05/23/17 09:00 05/23/17 08:26 Sodium Bicarbonate Tab PO 650 mg DAILY FABI Administration Intake and Output 05/22/17 05/23/17 05/23/17 22:59 06:59 14:59 Other: Voiding Method Toilet # Voids 1 2 05/22/17 14:05 05/22/17 14:05 - EKG Interpretation EKG: sinus rhythm, normal QRS, normal ST/T Assessment and Plan Plan: ASSESSMENT 1. Shortness of breath 2. Essential hypertension 3. Hyperlipidemia PLAN Echocardiogram reveals a preserved left ventricular function with an ejection fraction of 55-60%, moderately dilated left atrium, mild MR, RSVP 9.2 mmHg, mild TR mild concentric left ventricular hypertrophy. We will add a second troponin. However light of an abnormal CAT scan and possible pulmonary nodule this does not appear to be cardiac related. Patient should continue her current regimen of medications for blood pressure and hyperlipidemia. We will continue to see the patient on an as-needed basis. We thank you for this consultation. Nurse Practitioner note has been reviewed, I agree with a documented findings and plan of care. Patient was seen and examined.
[2017-05-23] MEDS: AZITHROMYCIN 500 MG TAB PO SCH (15:27)
[2017-05-23 17:22] LABS: Glucose,Whole Blood 103 mg/dL (75-99)
--- NOTE | 2017-05-23 18:08 | P.CNPUL ---
History of Present Illness Consult date: 05/23/17 Reason for consult: COPD, pneumonia, abnormal CXR/CT History of present illness: A pleasant 77-year-old here patient, an ex-smoker, a primary of Dr. Christina Monroe, who presented to the burst department having increased shortness of breath. She was also having some aching pain over the neck and right anterior shoulder area. Minimal cough. No significant sputum production. No fever or chills. In the ED, the patient was found to have a normal white cell count. Renal function was slightly abnormal with a creatinine of 1.27. Baseline creatinine is not known. Cardiac enzymes were negative. BNP was nonelevated. The chest x-ray showed elevation of the right hemidiaphragm. Early infiltrate and right lower lobe was also raised by the chest x-ray findings. Based on that , the patient underwent a computed tomography scan of the chest that showed elevation of the right hemidiaphragm compared to the left. This is a new finding knowing that the chest x-ray from 2012 showed a normal positioning of the right hemidiaphragm. In addition, pulmonary nodules were seen on the right lung. There was a suspicious nodule measuring 1.1 x 0.8 cm in size in the right upper lobe and another density in the right middle lobe measuring 1.1 x 1.0 cm in size. Some questionable lymphocytic changes is also seen in the right midlung/consolidation. No pleural effusions. There are some calcified subcentimeter paratracheal and right hilar lymph nodes seen. No pericardial effusion. Heart size was within normal. Moderately dilated left atrium. No pneumothorax. The patient is currently on oral Zithromax 5 mg by mouth daily. She is also on DuoNeb nebulized treatments around the clock. She is doing well. No respiratory difficulties. Ambulating. No major swelling lower extremities. No other significant events otherwise. An echocardiogram was also done and showed mild concentric left ventricular hypertrophy with an ejection fraction of 55-60%. No significant valvular abnormalities. Right ventricular systolic pressure was 9 mmHg. The patient was also seen by cardiology. She was cleared from the cardiac standpoint. No further recommendation was made for any form of cardiac disease or disorder. Review of Systems Constitutional: Reports as per HPI Eyes: denies as per HPI, denies blurred vision, denies bulging eye Ears: deny: decreased hearing, ear discharge, earache Ears, nose, mouth and throat: Denies headache, Denies sore throat Breasts: absent: as per HPI, change in shape, gynecomastia Cardiovascular: Reports dyspnea on exertion Respiratory: Reports as per HPI, Reports dyspnea Gastrointestinal: Reports as per HPI Genitourinary: Denies dysuria, Denies hematuria Musculoskeletal: Denies myalgias Musculoskeletal: absent: ankle pain, ankle stiffness, ankle swelling Integumentary: Denies pruritus, Denies rash Neurological: Denies numbness, Denies weakness Psychiatric: Denies anxiety, Denies depression Endocrine: Denies fatigue, Denies weight change Past Medical History Past Medical History: Cancer (Skin cancer), Diabetes Mellitus, Hyperlipidemia, Hypertension, Renal Disease, Sleep Apnea/CPAP/BIPAP Additional Past Medical History / Comment(s): Skin cancer, nephrolithiasis, eczema, macular degeneration, cataracts, sleep apnea, chronic renal failure, hyperlipidemia, hypertension, obesity, history of ulcerative colitis that has been essentially inactive. History of Any Multi-Drug Resistant Organisms: None Reported Past Surgical History: Bowel Resection Additional Past Surgical History / Comment(s): Left nephrectomy, lithotripsy, colonoscopy, bowel resection with ileostomy, insertion of a nephrostomy tube Past Anesthesia/Blood Transfusion Reactions: No Reported Reaction Smoking Status: Former smoker - Past Family History Father Family Medical History: Diabetes Mellitus Additional Family Medical History / Comment(s): ULCERATIVE COLITIS. Mother Family Medical History: Coronary Artery Disease (CAD) Additional Family Medical History / Comment(s): CARDIAC STENTS. FROM A BRAIN BLEED POST FALL Medications and Allergies Home Medications Medication Instructions Recorded Confirmed Type Allopurinol [Zyloprim] 300 mg PO DAILY 04/22/14 05/22/17 History Calcium Citrate/Vitamin D3 1 each PO DAILY 04/22/14 05/22/17 History [Calcium Citrate - Vit D3 Tab] Ergocalciferol [Vitamin D2 50,000 unit PO Q30D 04/22/14 05/22/17 History (DRISDOL)] Insulin Aspart [NovoLOG] See Protocol SQ ACHS PRN 04/22/14 05/22/17 History Insulin Detemir [Levemir] 20 unit SQ HS 04/22/14 05/22/17 History Simvastatin [Zocor] 40 mg PO HS 04/22/14 05/22/17 History Aspirin EC [Ecotrin] 81 mg PO HS 04/25/15 05/22/17 History Denosumab [Prolia] 60 mg SQ ONCE 12/30/15 05/22/17 History amLODIPine [Norvasc] 5 mg PO DAILY 12/30/15 05/22/17 History Calcitriol [Rocaltrol] 0.25 mcg PO MOWEFR 05/22/17 05/22/17 History Lisinopril [Zestril] 2.5 mg PO HS 05/22/17 05/22/17 History Sodium Bicarbonate Tab 650 mg PO DAILY 05/22/17 05/22/17 History Turmeric Root Extract [Turmeric] 500 mg PO DAILY 05/22/17 05/22/17 History Allergies Allergy/AdvReac Type Severity Reaction Status Date / Time celecoxib [From Celebrex] Allergy Rash/Hives Verified 05/22/17 14:18 Sulfa (Sulfonamide Allergy Rash/Hives Verified 05/22/17 14:18 Antibiotics) valdecoxib [From Bextra] Allergy Rash/Hives Verified 05/22/17 14:18 metformin AdvReac Nausea Verified 05/22/17 14:18 Physical Exam Vitals: Vital Signs Temp Pulse Pulse Resp BP BP Pulse Ox 05/23/17 16:00 16 05/23/17 15:00 97.5 F L 67 16 127/58 96 05/23/17 08:00 16 05/23/17 07:00 97.9 F 59 L 18 143/64 95 05/22/17 23:00 97.8 F 63 16 150/66 97 05/22/17 19:45 97.1 F L 65 16 179/79 96 05/22/17 19:10 99.3 F 67 20 157/65 96 05/22/17 18:11 57 L 18 177/74 97 Intake and Output 05/23/17 05/23/17 05/23/17 06:59 14:59 22:59 Other: # Voids 2 1 The patient appeared well nourished and normally developed. Vital signs as documented. Head exam is unremarkable. No scleral icterus or corneal arcus noted. Neck is without jugular venous distension, thyromegaly, or carotid bruits. Carotid upstrokes are brisk bilaterally. Lungs are clear to auscultation and percussion. Cardiac exam reveals the PMI to be normally sized and situated. Rhythm is regular. First and second heart sounds normal. No murmurs, rubs or gallops. Abdominal exam reveals normal bowel sounds, no masses , no organomegaly and no aortic enlargement. Extremities are nonedematous and both femoral and pedal pulses are normal. Results - Laboratory Findings CBC and BMP: 05/22/17 14:05 05/22/17 14:05 PT/INR, D-dimer PT 9.7 sec (9.0-12.0) 05/22/17 14:05 INR 0.9 (<1.2) 05/22/17 14:05 D-Dimer 0.28 mg/L FEU (<0.60) 05/22/17 14:05 Abnormal lab findings: Abnormal Labs 05/22/17 05/22/17 05/22/17 14:02 14:05 15:46 Chloride 109 H Carbon Dioxide 21 L BUN 24 H Creatinine 1.27 H POC Glucose (mg/dL) Hemoglobin A1c 6.5 H Ur Leukocyte Esterase Moderate H Urine Bacteria Rare H Urine Mucus Rare H 05/22/17 05/23/17 05/23/17 20:46 12:03 17:16 Chloride Carbon Dioxide BUN Creatinine POC Glucose (mg/dL) 121 H 139 H 103 H Hemoglobin A1c Ur Leukocyte Esterase Urine Bacteria Urine Mucus - Diagnostic Findings CT scan - chest: image reviewed Assessment and Plan Plan: Assessment 1 acute shortness of breath with some limited infiltration of the right midlung. Rule out underlying pneumonia. Currently on Zithromax. 2 right hemidiaphragmatic elevation/paralysis. This was absent back in 2012 and involved over the past 3 years. The exact cause is not clear at this point. 3 right upper lobe pulmonary nodule, indeterminate in nature measuring 1.2 x 1.1 cm in size that these to be followed up on outpatient basis. An outpatient PET scan may be reasonable to investigate this abnormality further 4 COPD 5 calcified mediastinal lymph nodes, probably later to a previous normal this infection 6 obstructive sleep apnea. 7 diabetes mellitus, on insulin 8 history of nephrectomy 9 chronic renal failure 10 hypertension 11 hyperlipidemia 12 obesity 13 hyperuricemia/gout 14 history of ulcerative colitis with previous bowel surgery Plan Patient is stable from the pulmonary standpoint. The right and diaphragmatic problem will be handled on outpatient basis. I think is reasonable to obtain an outpatient PET scan to assess the metabolic activity of the right upper lobe pulmonary nodule and act accordingly. I based on pulmonary function test will be done to assess the patient's lung capacity. Suspect underlying obstructive and restrictive pattern, restriction or originating from diaphragmatic paralysis and obesity. Meanwhile, I do suspect a right middle lobe pneumonia. Complete outpatient antibiotics. We'll address the patient's obstructive sleep apnea on outpatient basis also. We'll continue to follow. Skin Washer input is appreciated. Echocardiogram is within normal limits. CT angios the chest was reviewed.
--- NOTE | 2017-05-23 18:13 | PN ---
DATE OF SERVICE: 05/23/2017 PRESENTING COMPLAINT: Short of breath. INTERVAL HISTORY: This is a patient admitted with shortness of breath; really had no other infective symptoms, with elevated diaphragm on the x-ray and CT scan showing some lung nodules. Pulmonary input is awaited. I am concerned if there is underlying malignancy. Patient is sitting up, not in distress. Two-D echo has come back to be okay. Review of systems done for constitutional, cardiovascular, GI, pulmonary; relevant findings as above. Current medications are reviewed and include bronchodilators, IV antibiotics. On examination, temperature 97.9, pulse 59, respiration 18, blood pressure 123/ 64, pulse ox 95% on 2 L. GENERAL APPEARANCE: Sitting up. Not in distress. EYES: Pupils equal. Conjunctivae normal. NECK: JVD not raised. Mass not palpable. RESPIRATORY: Effort normal. LUNGS: Some right basal crackles. CARDIOVASCULAR: First and second sounds normal. No edema. ABDOMEN: Soft, non-tender. Liver and spleen ( ). PSYCHIATRY: Alert and oriented x3. Mood and affect normal. INVESTIGATIONS: Accu-Cheks are noted. ASSESSMENT: 1. This is a patient with 2 days of shortness of breath. No cough. No fever. No sputum, with elevated diaphragm on the x-ray and a CT scan showing lung nodules. Awaiting input from Pulmonary to rule out underlying malignancy. Pneumonia is still in differential, but I doubt it is that. 2. Diabetes mellitus, type 2, on oral hypoglycemic. 3. Hyperlipidemia. 4. Essential hypertension. 5. Obstructive sleep apnea; uses CPAP machine. 6. Ulcerative colitis leading to surgery with resulting ileostomy. PLAN: Two-D echocardiogram was also noted. It shows preserved LV function. Await pulmonary input. Care was discussed with the patient. Will follow. [facility]
[2017-05-23 20:55] LABS: Glucose,Whole Blood 201 mg/dL (75-99)
[2017-05-23] MEDS: ATORVASTATIN 20 MG TAB PO SCH (21:53)
[2017-05-23] MEDS: INSULIN DETEMIR 100 UNIT/ML 10 ML VIAL SQ SCH (21:53)
[2017-05-23] MEDS: LISINOPRIL 2.5 MG TAB PO SCH (21:53)
[2017-05-23] MEDS: ASPIRIN 81 MG PO SCH (21:53)
[2017-05-24 07:04] LABS: Glucose,Whole Blood 96 mg/dL (75-99)
[2017-05-24 07:42] VITALS: RESP 20
[2017-05-24] MEDS: ALLOPURINOL 300 MG TAB PO SCH (08:12)
[2017-05-24] MEDS: amLODIPine 5 MG TAB PO SCH (08:12)
[2017-05-24] MEDS: SODIUM BICARBONATE TAB 650 MG TAB PO SCH (08:12)
[2017-05-24] MEDS: INSULIN LISPRO (humaLOG) 300 UNIT/3 ML VIAL SQ SCH ×2 (08:13→13:17)
[2017-05-24 08:52] LABS: Basophils # (A) 0.1 k/uL (0-0.2); Basophils % (A) 1 %; CH 29.5; CHCM 32.7; Eosinophils # (A) 0.1 k/uL (0-0.7); Eosinophils % (A) 2 %; HCT 41.2 % (34.0-46.0); HDW 2.84; HGB 13.1 gm/dL (11.4-16.0); Luc % (Auto) 2; Lymphocytes # (A) 1.2 k/uL (1.0-4.8); Lymphocytes % (A) 17 %; MCH 28.8 pg (25.0-35.0); MCHC 31.7 g/dL (31.0-37.0); MCV 90.9 fL (80.0-100.0); Monocytes # (A) 0.4 k/uL (0-1.0); Monocytes % (A) 6 %; Neutrophils % (A) 73 %; RBC 4.53 m/uL (3.80-5.40); WBC 6.8 k/uL (3.8-10.6); WBC (Perox) 6.61
[2017-05-24 08:59] LABS: Calcium 9.7 mg/dL (8.4-10.2); Potassium 4.5 mmol/L (3.5-5.1)
[2017-05-24] MEDS: CALCIUM CARB-VIT D 500MG-200UN 1 EACH TAB PO SCH (11:37)
[2017-05-24] MEDS ORDERED: CALCITRIOL 0.25 MCG CAP PO SCH (12:00)
[2017-05-24 12:31] LABS: Glucose,Whole Blood 110 mg/dL (75-99)
--- NOTE | 2017-05-24 13:51 | P.PN ---
Subjective Principal diagnosis: Abnormal chest x-ray/CT A pleasant 77-year-old here patient, an ex-smoker, a primary of Dr. Christina Monroe, who presented to the burst department having increased shortness of breath. She was also having some aching pain over the neck and right anterior shoulder area. Minimal cough. No significant sputum production. No fever or chills. In the ED, the patient was found to have a normal white cell count. Renal function was slightly abnormal with a creatinine of 1.27. Baseline creatinine is not known. Cardiac enzymes were negative. BNP was nonelevated. The chest x-ray showed elevation of the right hemidiaphragm. Early infiltrate and right lower lobe was also raised by the chest x-ray findings. Based on that , the patient underwent a computed tomography scan of the chest that showed elevation of the right hemidiaphragm compared to the left. This is a new finding knowing that the chest x-ray from 2012 showed a normal positioning of the right hemidiaphragm. In addition, pulmonary nodules were seen on the right lung. There was a suspicious nodule measuring 1.1 x 0.8 cm in size in the right upper lobe and another density in the right middle lobe measuring 1.1 x 1.0 cm in size. Some questionable lymphocytic changes is also seen in the right midlung/consolidation. No pleural effusions. There are some calcified subcentimeter paratracheal and right hilar lymph nodes seen. No pericardial effusion. Heart size was within normal. Moderately dilated left atrium. No pneumothorax. The patient is currently on oral Zithromax 5 mg by mouth daily. She is also on DuoNeb nebulized treatments around the clock. She is doing well. No respiratory difficulties. Ambulating. No major swelling lower extremities. No other significant events otherwise. An echocardiogram was also done and showed mild concentric left ventricular hypertrophy with an ejection fraction of 55-60%. No significant valvular abnormalities. Right ventricular systolic pressure was 9 mmHg. The patient was also seen by cardiology. She was cleared from the cardiac standpoint. No further recommendation was made for any form of cardiac disease or disorder. Patient is seen again today 05/24/2017 in follow-up on the regular medical floor. She is currently sitting up in a chair at the bedside. She is awake and alert in no acute distress. She denies any worsening shortness breath, cough or congestion. She is maintaining good O2 saturations in the mid 90s on room air. She's been afebrile. Hemodynamically stable. She has been treated with bronchodilators, antibiotics in the form of ceftriaxone and azithromycin. She is anxious to go home. Blood culture reveals no growth to date. Objective - Vital Signs Vital signs: Vital Signs Temp 97.7 F 05/24/17 07:00 Pulse 62 05/24/17 07:00 Resp 20 05/24/17 07:00 BP 109/55 05/24/17 07:00 Pulse Ox 93 L 05/24/17 07:00 Intake & Output 05/23/17 05/24/17 05/24/17 18:59 06:59 18:59 Intake Total 150 Balance 150 Intake: Intake, IV Titration 150 Amount cefTRIAXone 1,000 mg In 150 Sodium Chloride 0.9% 50 ml @ 100 mls/hr IVPB Q24H [facility] Rx#:[id number] Other: # Voids 1 - Exam The patient appeared well nourished and normally developed. Vital signs as documented. Head exam is unremarkable. No scleral icterus or corneal arcus noted. Neck is without jugular venous distension, thyromegaly, or carotid bruits. Carotid upstrokes are brisk bilaterally. Lungs are clear to auscultation and percussion. Cardiac exam reveals the PMI to be normally sized and situated. Rhythm is regular. First and second heart sounds normal. No murmurs, rubs or gallops. Abdominal exam reveals normal bowel sounds, no masses , no organomegaly and no aortic enlargement. Extremities are nonedematous and both femoral and pedal pulses are normal. - Labs CBC & Chem 7: 05/24/17 07:58 05/24/17 07:58 Labs: Abnormal Lab Results - Last 24 Hours (Table) 05/23/17 05/23/17 05/24/17 Range/Units 17:16 20:53 07:58 Chloride 108 H (98-107) mmol/L BUN 25 H (7-17) mg/dL Creatinine 1.40 H (0.52-1.04) mg/dL POC Glucose (mg/dL) 103 H 201 H (75-99) mg/dL 05/24/17 Range/Units 12:29 Chloride (98-107) mmol/L BUN (7-17) mg/dL Creatinine (0.52-1.04) mg/dL POC Glucose (mg/dL) 110 H (75-99) mg/dL Microbiology - Last 24 Hours (Table) 05/22/17 17:00 Blood Culture - Preliminary Blood No Growth after 24 hours 05/22/17 14:05 Blood Culture - Preliminary Blood No Growth after 24 hours Assessment and Plan Plan: Assessment 1 acute shortness of breath with some limited infiltration of the right midlung. Rule out underlying pneumonia. Currently on Zithromax. 2 right hemidiaphragmatic elevation/paralysis. This was absent back in 2012 and involved over the past 3 years. The exact cause is not clear at this point. 3 right upper lobe pulmonary nodule, indeterminate in nature measuring 1.2 x 1.1 cm in size that these to be followed up on outpatient basis. An outpatient PET scan may be reasonable to investigate this abnormality further 4 COPD 5 calcified mediastinal lymph nodes, probably later to a previous normal this infection 6 obstructive sleep apnea. 7 diabetes mellitus, on insulin 8 history of nephrectomy 9 chronic renal failure 10 hypertension 11 hyperlipidemia 12 obesity 13 hyperuricemia/gout 14 history of ulcerative colitis with previous bowel surgery Plan The patient was seen any evaluated by Dr. Pryor. He did explain to her about the right upper lobe nodule. We'll plan for a follow-up computed tomography scan in 3-4 months time. She also may benefit from a sniff test in the outpatient setting. It is still unclear as to when her right hemidiaphragmatic elevation occurred. A PET scan may also be warranted to rule any significant malignancy/metastasis and she is agreeable to the plan. She'll continue on her current medications. Complete a course of antibiotics. She is encouraged however to call sooner with any recurrence of symptoms or other questions or concerns.
[2017-05-24 15:35] VITALS: BP 124/52; PULSE 77; TEMP 97.3
[2017-05-24] MEDS: AZITHROMYCIN 500 MG TAB PO SCH (15:44)
--- NOTE | 2017-05-24 17:19 | FL ---
EXAMINATION TYPE: FL sniff test without CXR DATE OF EXAM: 05/24/2017 COMPARISON: Correlation radiographs 05/23/2017 HISTORY: 77-year-old female increased shortness of breath for 4 days. Evaluate for right diaphragmati c paralysis. Total fluoroscopy time: 36 seconds. Total images: 4. TECHNIQUE: Real time fluoroscopy with a quiet breathing, deep breathing, and sniff maneuver. FINDINGS: There is elevation of the right hemidiaphragm. During initiation of both quiet and deep breathing there is transient paradoxical movement of the rig ht hemidiaphragm during the beginning of inspiration. However, this normalizes during the remainder o f the inspiration. During sniffing maneuver, the paradoxical movement is pronounced with appropriate downward movement o f the left hemidiaphragm and abnormal upward movement of the right hemidiaphragm. IMPRESSION: Findings compatible with right hemidiaphragmatic paralysis.
--- NOTE | 2017-05-26 08:35 | DS ---
FINAL DIAGNOSES: 1. Acute shortness of breath from right diaphragm paralysis. 2. Diabetes mellitus Type 2 on oral hypoglycemic. 3. Hyperlipidemia. 4. Essential hypertension. 5. Obstructive sleep apnea uses a CPAP machine. 6. Ulcerative colitis history leading to surgery with resulting ileostomy. HOSPITAL COURSE: This patient presented with acute shortness of breath felt to be from acute right diaphragm prolapsed, though the exact timing cannot be said. Was empirically treated with antibiotics but not felt to be pneumonia. 2D echocardiogram showed preserved LV function. The patient has some lymph nodes in the chest. The patient will follow with Dr. Pryor as an outpatient. Malignancy remains as differential with other causes need to be present. I did order a fluoroscopy testing for the right diaphragm with sniff test. That did come back compatible with right hemidiaphragmatic paralysis. I did talk to Dr. Pryor. He agrees he did not feel like this was pneumonia. Did discuss with the patient. On examination, lungs fair air entry. Decreased breath sounds in the right base. Additionally antibiotics were discontinued. DISCHARGE MEDICATIONS: 1. Allopurinol 300 mg daily. 2. Calcium with Vitamin D one tablet po daily. 3. Vitamin D 50,000 units po every 30 days. 4. NovoLog per scale. 5. Levemir 20 units subcu q.h.s. 6. Zocor 40 mg po q.h.s. 7. Aspirin 81 mg po q.h.s. 8. Prolia 60 mg. 9. Norvasc 5 mg po daily. 10. Rocaltrol 0.25 mcg po Saturday, Saturday and Saturday. 11. Zestril 2.5 mg po q.h.s. 12. Sodium bicarb 60 mg po daily. 13. Tumeric 500 mg po daily. Follow-up with Dr. Monroe in three days. Follow-up with Dr. Pryor in one week. Discharge planning more than 35 minutes. [facility]
[2017-06-14] MEDS ORDERED: ERGOCALCIFEROL 50,000 UNIT CAP PO SCH (12:00)
== END 2017-05-24 17:15 | disposition home or self-care (01) | DRG 206 ==
LOC: EC 13:39 → 4MS4W 16:31
PROVIDERS: ADMIT Hospitalist; ATTEND Hospitalist
DX: J98.6 Disorders of diaphragm (principal); E11.22 Type 2 diabetes mellitus with diabetic chronic kidney disease; J44.9 Chronic obstructive pulmonary disease, unspecified; E66.9 Obesity, unspecified; E78.5 Hyperlipidemia, unspecified; G47.33 Obstructive sleep apnea (adult) (pediatric); I10 Essential (primary) hypertension; M10.9 Gout, unspecified; N18.9 Chronic kidney disease, unspecified; R09.02 Hypoxemia; R91.1 Solitary pulmonary nodule; M54.2 Cervicalgia; Z79.4 Long term (current) use of insulin; Z79.899 Other long term (current) drug therapy; Z79.82 Long term (current) use of aspirin; Z85.828 Personal history of other malignant neoplasm of skin; Z87.891 Personal history of nicotine dependence; Z93.3 Colostomy status; Z88.2 Allergy status to sulfonamides; Z88.8 Allergy status to other drugs, medicaments and biological substances; Z82.49 Family history of ischemic heart disease and other diseases of the circulatory system
CPT/HCPCS: 36415; 71020; 71275; 76000; 80048; 80053; 81001; 82550; 82553; 83036; 83880; 84484; 85025; 85379; 85610; 85730; 87040; 93005; 93306; 94760; 96365; 96366; 96368; 99285

== ENCOUNTER → 2017-06-06 | Outpatient (CLI) | payer MEDICARE ==
--- NOTE | 2017-06-06 10:35 | XR ---
EXAMINATION TYPE: XR cervical spine limited DATE OF EXAM: 06/06/2017 COMPARISON: NONE HISTORY: Neck pain TECHNIQUE: 3 views are submitted. FINDINGS: The odontoid is intact. There are no compression deformities. The prevertebral soft tissue structur es are within normal limits. Calcification soft tissue the left neck compatible carotid artery calci fication. Degenerative changes seen throughout the cervical spine with most marked changes at C5-C6. Facet arthropathy at all levels. IMPRESSION: 1. Multilevel degenerative disc disease and facet arthropathy with most marked findings at C5-C6.
== END | disposition home or self-care (01) ==
LOC: RADXRMAIN 10:10
PROVIDERS: ATTEND Family Medicine
DX: M50.322 Other cervical disc degeneration at C5-C6 level (principal); M46.02 Spinal enthesopathy, cervical region
CPT/HCPCS: 72040

== ENCOUNTER → 2017-06-19 | Outpatient (CLI) | payer MEDICARE ==
[2017-06-19 14:04] VITALS: BP 155/69; PULSE 94; RESP 18; TEMP 97.3
== END ==
LOC: PROCWHC3 13:48
PROVIDERS: ATTEND Family Medicine
DX: M81.0 Age-related osteoporosis without current pathological fracture (principal)
CPT/HCPCS: 96372; J0897

== ENCOUNTER → 2017-06-29 | Outpatient (CLI) | payer MEDICARE ==
--- NOTE | 2017-07-01 06:25 | PE ---
EXAMINATION TYPE: PET CT fusion skull to thigh DATE OF EXAM: 06/29/2017 COMPARISON: 05/22/2017 CT angiogram chest. HISTORY: Solitary pulmonary nodule. Initial examination. TECHNIQUE: Following the intravenous administration of 14.36 mCi of F-18 FDG, whole body images are performed from the skull base to the midthigh. Images are reviewed on the computer in the coronal, a xial, and sagittal planes. Reconstructed rotating images are created on independent workstation and reviewed on the computer. A localization and attenuation correction CT is performed in conjunction with the PET scan. FINDINGS: SKULL BASE AND NECK: No suspicious adenopathy or hypermetabolic uptake. CHEST, MEDIASTINUM, AND HILAR REGION: Mediastinal background has a maximum SUV of 2.11. Solid 1.0 x 0.9 cm right upper lobe pulmonary nodule near the apex seen on series 3 image 56 is hyper metabolic with a maximum SUV of 2.69. Right middle lobe pulmonary nodule measures 1.1 x 0.8 cm and is hypermetabolic with a maximum SUV of 4.21. Adjacent to this within the anterior right mediastinum there is soft tissue attenuation that i s also hypermetabolic with a max SUV of 11.28. Right hemidiaphragm elevation is present as well as right lower and middle lobe atelectasis without h ypermetabolic uptake. Calcified hilar lymph nodes are noted as well as mild three-vessel coronary art murphy calcifications. No left-sided pulmonary nodules are seen. Left lower lobe subsegmental atelectasi s is noted. Calcified right upper lobe peripheral subpleural granulomas are present. No enlarged lymph nodes are seen within the hilar regions or mediastinum. No axillary adenopathy is p resent. ABDOMEN AND PELVIS: No adenopathy. Diffuse hypermetabolic uptake throughout the entire liver, predomi nating within the lower lobe measures a maximal SUV of 5.51. No other hypermetabolic uptake within th e abdomen or pelvis. No hypermetabolic uptake is seen in the left nephrectomy bed. OSSEOUS STRUCTURES: No suspicious lesions. No hypermetabolic uptake within the osseous structures. De generative changes are seen of the lumbar spine with sclerosis at L5-S1 symmetric bilaterally. OTHER CT: Cardiomegaly is again noted. Left kidney is surgically absent and there is dilation of the residual left ureter. Right lower quadrant ostomy is noted. Exophytic right lower pole renal cyst is seen as well as lobular contour of the right kidney, most pronounced posteriorly at the inferior pole . Probable right upper pole cyst renal cyst is also seen although incompletely measuring characterize d without intravenous contrast. There is diastases recti and a small fat filled umbilical hernia. No adenopathy is seen within the abdomen or pelvis. Spleen is unremarkable in size. IMPRESSION: 1. Right upper lobe nodule, right middle lobe nodule and mediastinal mass considered highly suspiciou s for malignancy and metastasis. It is somewhat unusual for the size of these pulmonary nodules to hernandez ve extensive anterior mediastinal adenopathy with much greater FDG avidity and therefore primary medi astinal neoplasm is also a possibility. 2. Nonspecific diffuse hypermetabolic uptake throughout the liver, which could be physiologic as no d iscrete measurable lesions are appreciated. However, dynamic contrast-enhanced CT abdomen is recommen ded for further evaluation.
== END | disposition home or self-care (01) ==
LOC: RADPETMAIN 09:52
PROVIDERS: ATTEND Internal Medicine Critical Care Medicine
DX: R91.8 Other nonspecific abnormal finding of lung field (principal)
CPT/HCPCS: 78815; A9552

== ENCOUNTER → 2017-08-27 | Outpatient (CLI) | payer MEDICARE ==
[2017-08-27 09:11] LABS: Basophils % (A) 1 %; CH 27.5; CHCM 31.5; Eosinophils # (A) 0.1 k/uL (0-0.7); Eosinophils % (A) 1 %; HCT 37.3 % (34.0-46.0); HDW 2.83; HGB 11.9 gm/dL (11.4-16.0); Hypochromasia Slight; Luc # (Auto) 0.07; Luc % (Auto) 1; Lymphocytes # (A) 1.1 k/uL (1.0-4.8); Lymphocytes % (A) 17 %; MCHC 31.9 g/dL (31.0-37.0); Mean Platelet Volume 7.1; Monocytes # (A) 0.4 k/uL (0-1.0); Monocytes % (A) 5 %; Neutrophils # (A) 4.9 k/uL (1.3-7.7); Neutrophils % (A) 75 %; RBC 4.24 m/uL (3.80-5.40); RDW 15.2 % (11.5-15.5); WBC 6.5 k/uL (3.8-10.6); WBC (Perox) 7.19
[2017-08-27 09:29] LABS: Appearance,Urine Cloudy (Clear); Bacteria,Urine Moderate /hpf; Bilirubin,Urine Negative (Negative); Glucose,Urine (UA) Negative (Negative); Ketones,Urine Negative (Negative); Leukocyte Esterase,Urine Large (Negative); Mucus,Urine Rare /hpf; Nitrite,Urine Negative (Negative); Particle Count 15823; Protein,Urine Trace (Negative); RBC,Urine 9 /hpf (0-5); Specific Gravity,Urine 1.018 (1.001-1.035); Squamous Epithelial Cell,Urine 20 /hpf (0-4); UA Billing (MACRO vs. MICRO) MICRO; Urobilinogen,Urine <2.0 mg/dL (<2.0); WBC,Urine 25 /hpf (0-5)
[2017-08-27 09:30] LABS: Magnesium 1.7 mg/dL (1.6-2.3); Phosphorus 3.6 mg/dL (2.5-4.5); Potassium 4.6 mmol/L (3.5-5.1); Uric Acid 4.3 mg/dL (3.7-7.4)
[2017-08-27 15:19] LABS: Iron Saturation 19.65 (12.00-45.00)
== END | disposition home or self-care (01) ==
LOC: LABWHC1 08:31
PROVIDERS: ATTEND Nurse Practitioner Family
DX: N18.3 Chronic kidney disease, stage 3 (moderate) (principal); D64.9 Anemia, unspecified; E55.9 Vitamin D deficiency, unspecified; E21.3 Hyperparathyroidism, unspecified; M10.9 Gout, unspecified; N39.0 Urinary tract infection, site not specified
CPT/HCPCS: 36415; 80048; 81001; 82306; 82728; 83540; 83550; 83735; 83970; 84100; 84550; 85025

== ENCOUNTER 2017-09-03 08:46 | Day surgery (SDC) | payer MEDICARE ==
[~2017-09-03 08:46] MED LIST changes: +ALPRAZolam 0.25 MG TAB PO ONE; -DENOSUMAB 60 MG/ML 1 ML SYRINGE SQ ONE; +HYDROmorphone 0.5 MG/0.5 ML SYRINGE IVP PRN
[2017-09-03 09:29] VITALS: RESP 14; TEMP 97.4
[2017-09-03 09:38] LABS: Mean Platelet Volume 8.1
[2017-09-03 09:44] LABS: INR 0.9 (<1.2); Partial Thromboplastin Time 24.4 sec (22.0-30.0); Prothrombin Time 9.5 sec (9.0-12.0)
--- NOTE | 2017-09-03 11:00 | XR ---
EXAMINATION TYPE: XR chest 1V DATE OF EXAM: 09/03/2017 COMPARISON: Prior chest x-ray 05/23/2017 HISTORY: Post mediastinal biopsy TECHNIQUE: Single frontal view of the chest is obtained. FINDINGS: Patchy basilar density is again noted. There is no evident pneumothorax or pleural effusio n. Cardiac mediastinal silhouette shows a similar appearance. Elevation of the right hemidiaphragm ag ain noted. IMPRESSION: No evident complication status post mediastinal biopsy.
[2017-09-03 11:58] VITALS: BP 130/62; PULSE 71
--- NOTE | 2017-09-03 15:08 | CT ---
EXAMINATION TYPE: CT guided FNA DATE OF EXAM: 09/03/2017 COMPARISON: PET/CT 06/29/2017 HISTORY: Other diseases of the mediastinum, abnormal PET/CT, mediastinal mass CT DLP: 1316 mGycm Automated exposure control for dose reduction was used. FINDINGS: Maximal barrier technique was utilized. The skin overlying a suitable path to the patient's mediastin al mass was localized with CT, and the overlying skin was prepped and draped. Lidocaine used for loca l anesthesia. A skin melissa made with a scalpel. 20-gauge needle was advanced into the mediastinum to t he level of the mass. Coaxial placement of a 22-gauge needle was made at 3 separate locations specime n submitted to cytology. Patient remained in stable condition. Post procedure chest x-ray pending. No immediate complication. IMPRESSION: STATUS POST CT GUIDED FINE-NEEDLE ASPIRATION OF MEDIASTINAL MASS, PATHOLOGY PENDING. THIS PROCEDURE P ERFORMED BY THE UNDERSIGNED.
== END 2017-09-03 11:05 | disposition home or self-care (01) ==
LOC: RADPROMAIN 08:46
PROVIDERS: ATTEND Internal Medicine Critical Care Medicine
DX: C38.1 Malignant neoplasm of anterior mediastinum (principal); G47.33 Obstructive sleep apnea (adult) (pediatric); J98.6 Disorders of diaphragm; Z99.89 Dependence on other enabling machines and devices; E11.22 Type 2 diabetes mellitus with diabetic chronic kidney disease; N18.9 Chronic kidney disease, unspecified; Z79.4 Long term (current) use of insulin; Z87.891 Personal history of nicotine dependence; E66.9 Obesity, unspecified; Z68.36 Body mass index [BMI] 36.0-36.9, adult; E78.5 Hyperlipidemia, unspecified; Z79.899 Other long term (current) drug therapy; Z88.6 Allergy status to analgesic agent; Z88.2 Allergy status to sulfonamides; Z88.8 Allergy status to other drugs, medicaments and biological substances
CPT/HCPCS: 10022; 71010; 77012; 85049; 85610; 85730; 88173; 88305; 88341; 88342

== ENCOUNTER → 2017-11-11 | Outpatient (CLI) | payer MEDICARE ==
--- NOTE | 2017-11-11 13:28 | CT ---
EXAMINATION TYPE: CT chest w con DATE OF EXAM: 11/11/2017 COMPARISON: CTA chest June 01, 2017. PET CT June 29, 2017. HISTORY: Malignant Neoplasm of Thymus CT DLP: 397.7 mGycm. Automated Exposure Control for Dose Reduction was Utilized. TECHNIQUE: CT scan of the thorax is performed following with IV Contrast, patient injected with 50 m L of Visipaque 320. FINDINGS: LUNGS: There is redemonstration of elevated right hemidiaphragm. There is stable 9 x 8 mm nodule ante rior right upper lung axial image 23. There is felt stable 7 x 7 mm right middle lobe near diaphragm axial image 29 There are additional areas of right basilar scarring and/or atelectasis near diaphragm redemonstrated. Some linear scarring or atelectasis in the lingula and posteriorly in the left lower lobe are redemonstrated, lingular finding is less prominent versus prior. No new nodules or masses a re identified. No pleural effusion or pneumothorax is seen. MEDIASTINUM: There are no new greater than 1 cm hilar or mediastinal lymph nodes. No cardiomegaly o r pericardial effusion is seen. Coronary artery calcification is redemonstrated which is noted marke r for coronary artery disease. Irregular lobulated anterior superior mediastinal mass corresponds to biopsy-proven thymus malignancy rOTHER measures approximately 4.5 cm transversely by 2.8 cm AP diamet er axial image 22 not significantly changed from prior studies. There is indistinct fat plane from th e adjacent left brachiocephalic vein redemonstrated. Mass effect likely causing narrowing is felt pre sent similar prior. There is close proximity of lesion to the superior anterior aspect of the right a trium. Other: There is new right internal jugular Mediport catheter with tip in right brachiocephalic vein s uperior to brachiocephalic confluence at SVC. Surgical changes from left nephrectomy are partially im aged on this study. There is moderate multilevel spurring in the thoracic spine noted. Slight nodular thickening left adrenal gland on axial image 54 is stable presumed benign. 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 No new suspicious nodules or adenopathy identified.
== END | disposition home or self-care (01) ==
LOC: RADPROMAIN 10:48
PROVIDERS: ATTEND Internal Medicine Hematology & Oncology
DX: C37 Malignant neoplasm of thymus (principal); C78.01 Secondary malignant neoplasm of right lung
CPT/HCPCS: 82565; 84520; 71260; Q9967; J1642

== ENCOUNTER 2017-12-04 15:38 | Inpatient (IN) | payer MEDICARE ==
[2017-12-04] MEDS ORDERED: ACETAMINOPHEN TAB 500 MG TAB PO STA (16:11)
[2017-12-04] MEDS ORDERED: IBUPROFEN 600 MG TAB PO STA (16:11)
--- NOTE | 2017-12-04 16:14 | ED ---
General Adult HPI - General Chief complaint: Fever Stated complaint: chemo patient-nausea/weakness Time Seen by Provider: 12/04/17 15:45 Source: patient, RN notes reviewed Mode of arrival: ambulatory Limitations: no limitations - History of Present Illness Initial comments: This is a 77-year-old female who presents emergency Department with a past medical history significant for thyroid cancer. Patient states she's received chemotherapy and is getting radiation as well. Patient comes in today because she has spiked a fever. Patient denies any headache patient denies any neck stiffness. Patient denies any difficulty breathing or shortness of breath per patient denies any cough. Patient denies any chest pain or palpitations. Patient denies abdominal pain patient denies any vomiting or diarrhea. Patient denies any dysuria hematuria urinary from us. Patient denies any open sores or wounds. - Related Data Home Medications Medication Instructions Recorded Confirmed Allopurinol [Zyloprim] 300 mg PO DAILY 04/22/14 12/04/17 Ergocalciferol [Vitamin D2 50,000 unit PO Q30D 04/22/14 12/04/17 (DRISDOL)] Insulin Aspart [NovoLOG See Protocol SQ ACHS PRN 04/22/14 12/04/17 (formulary)] Insulin Detemir [Levemir] 25 unit SQ HS 04/22/14 12/04/17 Simvastatin [Zocor] 40 mg PO HS 04/22/14 12/04/17 Aspirin EC [Ecotrin Low Dose] 81 mg PO HS 04/25/15 12/04/17 Denosumab [Prolia] 60 mg SQ Q180D 12/30/15 12/04/17 amLODIPine [Norvasc] 5 mg PO DAILY 12/30/15 12/04/17 Calcitriol [Rocaltrol] 0.25 mcg PO MO 05/22/17 12/04/17 Lisinopril [Zestril] 2.5 mg PO HS 05/22/17 12/04/17 Sodium Bicarbonate Tab 650 mg PO DAILY 05/22/17 12/04/17 Turmeric Root Extract [Turmeric] 500 mg PO DAILY 05/22/17 12/04/17 Acetaminophen [Tylenol Extra 1,000 mg PO Q8HR PRN 08/28/17 12/04/17 Strength] Calcium Carbonate [Calcium] 600 mg PO DAILY 12/04/17 12/04/17 Ferrous Sulfate [Iron] 325 mg PO HS 12/04/17 12/04/17 Lidocaine-Prilocaine Cream [Emla 1 applic TOPICAL DAILY 12/04/17 12/04/17 Cream 2.5%/2.5%] Ondansetron [Zofran] 4 mg PO Q12HR PRN 12/04/17 12/04/17 Allergies Allergy/AdvReac Type Severity Reaction Status Date / Time celecoxib [From Celebrex] Allergy Rash/Hives Verified 12/04/17 16:44 Sulfa (Sulfonamide Allergy Rash/Hives Verified 12/04/17 16:44 Antibiotics) valdecoxib [From Bextra] Allergy Rash/Hives Verified 12/04/17 16:44 metformin AdvReac Nausea Verified 12/04/17 16:44 Review of Systems ROS Statement: Those systems with pertinent positive or pertinent negative responses have been documented in the HPI. ROS Other: All systems not noted in ROS Statement are negative. Past Medical History Past Medical History: Cancer, Hyperlipidemia, Hypertension Additional Past Medical History / Comment(s): skin cancer, kidney stones, 2016 lung nodule thymus cancer kidney disease ulcerative colitis History of Any Multi-Drug Resistant Organisms: None Reported Past Surgical History: Bowel Resection Additional Past Surgical History / Comment(s): ileostomy, rectal removal, left kidney removed Past Anesthesia/Blood Transfusion Reactions: No Reported Reaction Past Psychological History: No Psychological Hx Reported Smoking Status: Former smoker Past Alcohol Use History: None Reported Past Drug Use History: None Reported - Past Family History Father Family Medical History: Diabetes Mellitus Additional Family Medical History / Comment(s): ULCERATIVE COLITIS. Mother Family Medical History: Coronary Artery Disease (CAD) Additional Family Medical History / Comment(s): CARDIAC STENTS. FROM A BRAIN BLEED POST FALL General Exam - General Exam Comments Initial Comments: GENERAL: Patient is well-developed and well-nourished. Patient is nontoxic and well- hydrated and is in mild distress. ENT: Neck is soft and supple. No significant lymphadenopathy is noted. Oropharynx is clear. Moist mucous membranes. Neck has full range of motion without eliciting any pain. EYES: The sclera were anicteric and conjunctiva were pink and moist. Extraocular movements were intact and pupils were equal round and reactive to light. Eyelids were unremarkable. PULMONARY: Unlabored respirations. Good breath sounds bilaterally. No audible rales rhonchi or wheezing was noted. CARDIOVASCULAR: There is a regular rate and rhythm without any murmurs gallops or rubs. ABDOMEN: Soft and nontender with normal bowel sounds. SKIN: Skin is clear with no lesions or rashes and otherwise unremarkable. NEUROLOGIC: Patient is alert and oriented x3. Cranial nerves II through XII are grossly intact. Motor and sensory are also intact. Normal speech, volume and content. Symmetrical smile. MUSCULOSKELETAL: Normal extremities with adequate strength and full range of motion. No lower extremity swelling or edema. No calf tenderness. LYMPHATICS: No significant lymphadenopathy is noted PSYCHIATRIC: Normal psychiatric evaluation. Normal interpersonal interactions appears functionally intact in deals appropriately with others. No signs of depression. No signs of anxiety. Limitations: no limitations Course Vital Signs 12/04/17 12/04/17 12/04/17 15:44 16:20 16:31 Temperature 100.9 F H 100.9 F H Pulse Rate 117 H 109 H Respiratory 18 18 Rate Blood Pressure 133/72 128/64 O2 Sat by Pulse 92 L 95 Oximetry 12/04/17 17:28 Temperature 100.4 F H Pulse Rate 104 H Respiratory 18 Rate Blood Pressure 148/67 O2 Sat by Pulse 99 Oximetry Medical Decision Making - Medical Decision Making EKG shows sinus tachycardia at [address] interval is 166 QRS is 88 QT interval 328 QTC is 443. Patient's EKG shows no ST segment elevation or depression however there is some CT depression in leads 2 and aVF and lead 1. - Lab Data Result diagrams: 12/04/17 16:10 12/04/17 16:10 Lab Results 12/04/17 12/04/17 12/04/17 Range/Units 16:10 16:10 16:10 WBC 11.8 H (3.8-10.6) k/uL RBC 4.03 (3.80-5.40) m/uL Hgb 11.8 (11.4-16.0) gm/dL Hct 36.5 (34.0-46.0) % MCV 90.7 (80.0-100.0) fL MCH 29.2 (25.0-35.0) pg MCHC 32.2 (31.0-37.0) g/dL RDW 16.0 H (11.5-15.5) % Plt Count 122 L (150-450) k/uL Neutrophils % 90 % Lymphocytes % 6 % Monocytes % 3 % Eosinophils % 1 % Basophils % 0 % Neutrophils # 10.6 H (1.3-7.7) k/uL Lymphocytes # 0.7 L (1.0-4.8) k/uL Monocytes # 0.3 (0-1.0) k/uL Eosinophils # 0.1 (0-0.7) k/uL Basophils # 0.0 (0-0.2) k/uL Anisocytosis Slight PT (9.0-12.0) sec INR (<1.2) APTT (22.0-30.0) sec Sodium 139 (137-145) mmol/L Potassium 4.5 (3.5-5.1) mmol/L Chloride 106 (98-107) mmol/L Carbon Dioxide 22 (22-30) mmol/L Anion Gap 11 mmol/L BUN 27 H (7-17) mg/dL Creatinine 1.10 H (0.52-1.04) mg/dL Est GFR (MDRD) Af Amer 59 (>60 ml/min/1.73 sqM) Est GFR (MDRD) Non-Af 48 (>60 ml/min/1.73 sqM) Glucose 163 H (74-99) mg/dL Plasma Lactic Acid Kamron (0.7-2.0) mmol/L Calcium 8.9 (8.4-10.2) mg/dL Total Bilirubin 0.7 (0.2-1.3) mg/dL AST 17 (14-36) U/L ALT 27 (9-52) U/L Alkaline Phosphatase 67 (38-126) U/L Total Creatine Kinase 26 L (30-135) U/L CK-MB (CK-2) 0.7 (0.0-2.4) ng/mL CK-MB (CK-2) Rel Index 2.7 Troponin I <0.012 (0.000-0.034) ng/mL Total Protein 6.2 L (6.3-8.2) g/dL Albumin 3.8 (3.5-5.0) g/dL Urine Color Urine Appearance (Clear) Urine pH (5.0-8.0) Ur Specific [place] (1.001-1.035) Urine Protein (Negative) Urine Glucose (UA) (Negative) Urine Ketones (Negative) Urine Blood (Negative) Urine Nitrite (Negative) Urine Bilirubin (Negative) Urine Urobilinogen (<2.0) mg/dL Ur Leukocyte Esterase (Negative) Urine RBC (0-5) /hpf Urine WBC (0-5) /hpf Ur Squamous Epith Cells (0-4) /hpf Urine Mucus (None) /hpf Influenza Type A RNA (Not Detectd) Influenza Type B (PCR) (Not Detectd) 12/04/17 12/04/17 12/04/17 Range/Units 16:10 16:10 16:10 WBC (3.8-10.6) k/uL RBC (3.80-5.40) m/uL Hgb (11.4-16.0) gm/dL Hct (34.0-46.0) % MCV (80.0-100.0) fL MCH (25.0-35.0) pg MCHC (31.0-37.0) g/dL RDW (11.5-15.5) % Plt Count (150-450) k/uL Neutrophils % % Lymphocytes % % Monocytes % % Eosinophils % % Basophils % % Neutrophils # (1.3-7.7) k/uL Lymphocytes # (1.0-4.8) k/uL Monocytes # (0-1.0) k/uL Eosinophils # (0-0.7) k/uL Basophils # (0-0.2) k/uL Anisocytosis PT 9.4 (9.0-12.0) sec INR 0.9 (<1.2) APTT 28.4 (22.0-30.0) sec Sodium (137-145) mmol/L Potassium (3.5-5.1) mmol/L Chloride (98-107) mmol/L Carbon Dioxide (22-30) mmol/L Anion Gap mmol/L BUN (7-17) mg/dL Creatinine (0.52-1.04) mg/dL Est GFR (MDRD) Af Amer (>60 ml/min/1.73 sqM) Est GFR (MDRD) Non-Af (>60 ml/min/1.73 sqM) Glucose (74-99) mg/dL Plasma Lactic Acid Kamron 0.6 L (0.7-2.0) mmol/L Calcium (8.4-10.2) mg/dL Total Bilirubin (0.2-1.3) mg/dL AST (14-36) U/L ALT (9-52) U/L Alkaline Phosphatase (38-126) U/L Total Creatine Kinase (30-135) U/L CK-MB (CK-2) (0.0-2.4) ng/mL CK-MB (CK-2) Rel Index Troponin I (0.000-0.034) ng/mL Total Protein (6.3-8.2) g/dL Albumin (3.5-5.0) g/dL Urine Color Urine Appearance (Clear) Urine pH (5.0-8.0) Ur Specific [place] (1.001-1.035) Urine Protein (Negative) Urine Glucose (UA) (Negative) Urine Ketones (Negative) Urine Blood (Negative) Urine Nitrite (Negative) Urine Bilirubin (Negative) Urine Urobilinogen (<2.0) mg/dL Ur Leukocyte Esterase (Negative) Urine RBC (0-5) /hpf Urine WBC (0-5) /hpf Ur Squamous Epith Cells (0-4) /hpf Urine Mucus (None) /hpf Influenza Type A RNA Not Detected (Not Detectd) Influenza Type B (PCR) Not Detected (Not Detectd) 12/04/17 Range/Units 17:30 WBC (3.8-10.6) k/uL RBC (3.80-5.40) m/uL Hgb (11.4-16.0) gm/dL Hct (34.0-46.0) % MCV (80.0-100.0) fL MCH (25.0-35.0) pg MCHC (31.0-37.0) g/dL RDW (11.5-15.5) % Plt Count (150-450) k/uL Neutrophils % % Lymphocytes % % Monocytes % % Eosinophils % % Basophils % % Neutrophils # (1.3-7.7) k/uL Lymphocytes # (1.0-4.8) k/uL Monocytes # (0-1.0) k/uL Eosinophils # (0-0.7) k/uL Basophils # (0-0.2) k/uL Anisocytosis PT (9.0-12.0) sec INR (<1.2) APTT (22.0-30.0) sec Sodium (137-145) mmol/L Potassium (3.5-5.1) mmol/L Chloride (98-107) mmol/L Carbon Dioxide (22-30) mmol/L Anion Gap mmol/L BUN (7-17) mg/dL Creatinine (0.52-1.04) mg/dL Est GFR (MDRD) Af Amer (>60 ml/min/1.73 sqM) Est GFR (MDRD) Non-Af (>60 ml/min/1.73 sqM) Glucose (74-99) mg/dL Plasma Lactic Acid Kamron (0.7-2.0) mmol/L Calcium (8.4-10.2) mg/dL Total Bilirubin (0.2-1.3) mg/dL AST (14-36) U/L ALT (9-52) U/L Alkaline Phosphatase (38-126) U/L Total Creatine Kinase (30-135) U/L CK-MB (CK-2) (0.0-2.4) ng/mL CK-MB (CK-2) Rel Index Troponin I (0.000-0.034) ng/mL Total Protein (6.3-8.2) g/dL Albumin (3.5-5.0) g/dL Urine Color Yellow Urine Appearance Clear (Clear) Urine pH 5.0 (5.0-8.0) Ur Specific [place] 1.016 (1.001-1.035) Urine Protein Trace H (Negative) Urine Glucose (UA) Negative (Negative) Urine Ketones Negative (Negative) Urine Blood Trace H (Negative) Urine Nitrite Negative (Negative) Urine Bilirubin Negative (Negative) Urine Urobilinogen <2.0 (<2.0) mg/dL Ur Leukocyte Esterase Moderate H (Negative) Urine RBC 7 H (0-5) /hpf Urine WBC 5 (0-5) /hpf Ur Squamous Epith Cells <1 (0-4) /hpf Urine Mucus Rare H (None) /hpf Influenza Type A RNA (Not Detectd) Influenza Type B (PCR) (Not Detectd) Disposition Clinical Impression: Fever, unknown origin Disposition: ADMITTED IP TO THIS HOSP Referrals: Nithin Monroe DO [Primary Care Provider] - 1-2 days Time of Disposition: 18:06
[2017-12-04] MEDS: SODIUM CHLORIDE 0.9% 500 ML IV SCH (16:27)
[2017-12-04 16:38] LABS: Anisocytosis Slight; Basophils % (A) 0 %; Eosinophils # (A) 0.1 k/uL (0-0.7); Eosinophils % (A) 1 %; HCT 36.5 % (34.0-46.0); HGB 11.8 gm/dL (11.4-16.0); Lymphocytes # (A) 0.7 k/uL (1.0-4.8); Lymphocytes % (A) 6 %; MCH 29.2 pg (25.0-35.0); MCHC 32.2 g/dL (31.0-37.0); MCV 90.7 fL (80.0-100.0); Mean Platelet Volume 7.1; Monocytes # (A) 0.3 k/uL (0-1.0); Monocytes % (A) 3 %; Neutrophils # (A) 10.6 k/uL (1.3-7.7); Neutrophils % (A) 90 %; Platelet Count 122 k/uL (150-450); RBC 4.03 m/uL (3.80-5.40); WBC 11.8 k/uL (3.8-10.6)
[2017-12-04 16:43] LABS: INR 0.9 (<1.2); Partial Thromboplastin Time 28.4 sec (22.0-30.0); Prothrombin Time 9.4 sec (9.0-12.0)
[2017-12-04 16:48] LABS: Albumin 3.8 g/dL (3.5-5.0); Calcium 8.9 mg/dL (8.4-10.2); Potassium 4.5 mmol/L (3.5-5.1); Total Bilirubin 0.7 mg/dL (0.2-1.3); Total Protein 6.2 g/dL (6.3-8.2)
[2017-12-04 16:58] LABS: Creatine Kinase 26 U/L (30-135)
--- NOTE | 2017-12-04 17:06 | XR ---
EXAMINATION TYPE: XR chest 2V DATE OF EXAM: 12/04/2017 COMPARISON: 09/03/2017 HISTORY: 77-year-old female with fever TECHNIQUE: PA and lateral views FINDINGS: Right anterior chest wall injection port with catheter tip at the upper SVC. Elevation of right hemid iaphragm as seen previously. Mild diffuse interstitial prominence appears similar. There is some foca l patchy right basilar density which appears relatively similar prior. Possible subtle nodular densit y peripheral left midlung. IMPRESSION: 1. Continued elevation of the right hemidiaphragm with right basilar volume loss. Patchy opacity here most likely represents atelectasis. Infiltrate would be difficult to exclude. 2. Nodular density peripheral left midlung not seen previously. Follow-up recommended to exclude a ne w pulmonary nodule.
[2017-12-04 17:11] LABS: Creatine Kinase MB 0.7 ng/mL (0.0-2.4); Troponin I <0.012 ng/mL (0.000-0.034)
[2017-12-04 17:56] LABS: Appearance,Urine Clear (Clear); Bilirubin,Urine Negative (Negative); Blood,Urine Trace (Negative); Color,Urine Yellow; Glucose,Urine (UA) Negative (Negative); Ketones,Urine Negative (Negative); Leukocyte Esterase,Urine Moderate (Negative); Mucus,Urine Rare /hpf; Nitrite,Urine Negative (Negative); Protein,Urine Trace (Negative); RBC,Urine 7 /hpf (0-5); Specific Gravity,Urine 1.016 (1.001-1.035); Squamous Epithelial Cell,Urine <1 /hpf (0-4); Urobilinogen,Urine <2.0 mg/dL (<2.0); WBC,Urine 5 /hpf (0-5)
[2017-12-04] MEDS ORDERED: CEFEPIME 2 GM in SODIUM CHLORIDE 0.9% 50 ML IVPB STA (18:03)
[2017-12-04] MEDS ORDERED: VANCOMYCIN IV PER PHARMACY 1 EACH MISC MISCELLANE PRN (18:04)
[2017-12-04] MEDS ORDERED: SODIUM CHLORIDE 0.9% 1,000 ML IV ONE (18:06)
[2017-12-04] MEDS ORDERED: VANCOMYCIN 1,500 MG in SODIUM CHLORIDE 0.9% 250 ML IVPB STA (18:10)
[2017-12-04] MEDS ORDERED: ACETAMINOPHEN TAB 325 MG TAB PO PRN (20:37)
[2017-12-04 21:39] LABS: Glucose,Whole Blood 256 mg/dL (75-99)
[2017-12-04] MEDS: INSULIN ASPART 100 UNIT/ML 1 ML 10 ML VIAL SQ SCH (21:52)
[2017-12-04] MEDS: ASPIRIN 81 MG PO SCH (21:53)
[2017-12-04] MEDS: LISINOPRIL 2.5 MG TAB PO SCH (21:53)
[2017-12-04] MEDS: INSULIN DETEMIR 100 UNIT/ML 10 ML VIAL SQ SCH (21:53)
[2017-12-04] MEDS: FERROUS SULFATE 325 MG TAB PO SCH (21:53)
[2017-12-04] MEDS: ATORVASTATIN 20 MG TAB PO SCH (21:53)
[2017-12-04] MEDS: traMADol 50 MG TAB PO PRN (21:54)
[2017-12-05] MEDS ORDERED: ONDANSETRON 4 MG TAB PO PRN (00:26)
--- NOTE | 2017-12-05 03:52 | HP ---
HISTORY AND PHYSICAL DATE OF ADMISSION: 12/04/2017 CHIEF COMPLAINT: Fever. HISTORY OF PRESENT ILLNESS: This 77-year-old woman with a past medical history of multiple medical problems including hypertension, hyperlipidemia, squamous cell cancer, history of bowel resection, being followed by Dr. Christina Monroe in the outpatient setting, also thymus cancer also. The patient is also receiving chemotherapy from Dr. Linares. The patient also had radiation also. After that the patient spiked fever. Patient complaining of tiredness, weakness, and the patient came to [facility] and was admitted for further evaluation and treatment. There is no history of any contact with any infected person. The flue was negative. The patient started on broad- spectrum IV antibiotics. Patient had WBC 11.8. There is no history of headache, loss of consciousness, seizures. PAST MEDICAL HISTORY: History of recent thymus cancer with radiation chemotherapy, hypertension, hyperlipidemia, history of bowel resection. MEDICATIONS: Prior to admission include home medications are: 1. Iron 320 mg p.o. q.h.s. 2. Zocor 40 mg q.h.s. 3. Zofran 4 mg b.i.d. 4. Zestril 2.5 mg. 5. Levemir 25 units subcu b.i.d. 6. Ecotrin 81 mg q.h.s. 7. Tylenol 1000 mg q.8h p.r.n. 8. 1 application daily. 9. Turmeric 500 mg p.o. daily. 10.Sodium bicarb 650 daily. 11.Prolia 60 mg subcu daily. 12.Rocaltrol 0.25 mg p.o. 13.Drisdol 50,000 p.o. q30 days. 14.Norvasc 5 mg p.o. daily. 15.NovoLog a.c. and q.h.s. p.r.n. 16.Calcium 600 mg p.o. daily. 17.Zyloprim 300 mg p.o. daily. ALLERGIES: CELEBREX, SULFA, BEXTRA AND METFORMIN. FAMILY HISTORY: Family history of diabetes, ulcerative colitis in the family. SOCIAL HISTORY: Previous history of smoking. No history of alcohol intake. REVIEW OF SYSTEMS: ENT: No diminished vision or hearing. Cardiovascular: As mentioned earlier. RESPIRATORY: As mentioned earlier. GI no nausea or vomiting. no dysuria. Nervous system: No numbness, weakness. Allergy/Immunology: No asthma or hayfever. Hematology/Oncology: As mentioned earlier. Endocrine: No history of diabetes or hypothyroidism. CONSTITUTIONAL: As mentioned earlier. Dermatology:Negative. Rheumatology: Negative. Psychiatric: As mentioned earlier. PHYSICAL EXAMINATION: The patient is alert and oriented times three. Pulse 108. Blood pressure 130/69 , respiration 18, temperature 100.4, pulse ox 98% on 2 L. HEENT is conjunctivae normal. Oral mucosa moist. Neck is no jugular venous distention. No carotid bruit. No lymph node enlargement. Cardiovascular system: S1, S2 muffled. Respiratory: Breath sounds diminished in the bases. A few rhonchi. No crackles. ABDOMEN: Soft, nontender. No mass palpable. Legs: No edema and no swelling. NERVOUS SYSTEM: Higher functions as mentioned earlier. Moves all four limbs. No focal deficits. Lymphatics: No lymph nodes palpable in the neck, axillae or groin. SKIN: No ulcer, rash or bleeding. LABS: WBC 11.8, platelets 122, creatinine is 1.10, glucose 256. Troponins are negative. UA noted. ASSESSMENT: 1. Fever, possible sepsis following chemotherapy. 2. Thrombocytopenia. 3. Increased WBC. 4. Increased creatinine with possible mild acute renal failure. 5. Diabetes type 2. 6. 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 7. Hypertension. 8. Hyperlipidemia. 9. History of squamous cell cancer. 10.History of ileostomy. 11.History of ulcerative colitis. RECOMMENDATIONS AND DISCUSSION: Recommend to continue current management and symptomatic treatment. Otherwise at this time I would recommend broad-spectrum IV antibiotics, Cefepime, vancomycin, cultures and resume the home medications, overall prognosis guarded. I would recommend consult Dr. Linares and repeat labs. Otherwise guarded prognosis because of multiple complex medical issues. See orders for further details. We will administer insulin and Accu- Cheks a.c. and q.h.s. also. Repeat labs are ordered. IV fluids. Once again, the prognosis guarded because of the possibility of sepsis and associated risks in this immunocompromised individual with history of malignancy and as well as chemotherapy. We will monitor the patient closely. Prognosis guarded. Further recommendations to follow. MMODL / IJN: [id number] / [facility]
[2017-12-05] MEDS: traMADol 50 MG TAB PO PRN ×3 (04:21→19:29)
[2017-12-05 04:28] LABS: Anisocytosis Slight; Basophils % (A) 0 %; Eosinophils # (A) 0.1 k/uL (0-0.7); Eosinophils % (A) 1 %; HCT 33.1 % (34.0-46.0); HGB 10.5 gm/dL (11.4-16.0); Lymphocytes # (A) 0.9 k/uL (1.0-4.8); Lymphocytes % (A) 13 %; MCH 29.2 pg (25.0-35.0); MCHC 31.7 g/dL (31.0-37.0); Mean Platelet Volume 7.6; Monocytes # (A) 0.4 k/uL (0-1.0); Monocytes % (A) 6 %; Neutrophils # (A) 5.3 k/uL (1.3-7.7); Neutrophils % (A) 78 %; Platelet Count 103 k/uL (150-450); RDW 16.1 % (11.5-15.5); WBC 6.8 k/uL (3.8-10.6)
[2017-12-05 04:46] LABS: Calcium 7.8 mg/dL (8.4-10.2); Potassium 4.3 mmol/L (3.5-5.1)
[2017-12-05] MEDS: CEFEPIME 2 GM in SODIUM CHLORIDE 0.9% 50 ML IVPB SCH ×2 (06:06→18:20)
[2017-12-05 07:16] LABS: Glucose,Whole Blood 120 mg/dL (75-99)
[2017-12-05] MEDS: INSULIN ASPART 100 UNIT/ML 1 ML 10 ML VIAL SQ SCH ×4 (08:42→21:25)
[2017-12-05] MEDS: SODIUM BICARBONATE TAB 650 MG TAB PO SCH (08:50)
[2017-12-05] MEDS: amLODIPine 5 MG TAB PO SCH (08:50)
[2017-12-05] MEDS: ALLOPURINOL 300 MG TAB PO SCH (08:50)
[2017-12-05] MEDS ORDERED: NON-FORMULARY DRUG (Turmeric Root Extract [Turmeric] 500 MG) PO SCH (09:00)
[2017-12-05 09:43] VITALS: BMI 36.3
[2017-12-05] MEDS ORDERED: ONDANSETRON 4 MG/2 ML VIAL IVP STA (10:03)
[2017-12-05 11:55] LABS: Glucose,Whole Blood 132 mg/dL (75-99)
[2017-12-05] MEDS: VANCOMYCIN 1,500 MG in SODIUM CHLORIDE 0.9% 250 ML IVPB SCH (12:07)
[2017-12-05] MEDS: CALCIUM CARBONATE 500 MG CHEWABLE PO SCH (12:09)
[2017-12-05] MEDS: LIDOCAINE-PRILOCAINE 2.5-2.5% CREAM 5 GM TUBE TOPICAL SCH (12:49)
[2017-12-05] MEDS: PANTOPRAZOLE 40 MG TABLET PO SCH ×2 (12:52→18:20)
--- NOTE | 2017-12-05 17:17 | PN ---
PROGRESS NOTE DATE OF SERVICE: 12/05/2017 This 77-year-old woman who was admitted with fever with possible sepsis. following the patient closely. No chest pain. No palpitations. No fever at this time. Patient is on broad IV antibiotics. The patient also complains of nausea and some slight and discomfort also. EXAM: Alert and oriented x3. Pulse 72, blood pressure 130/63, respirations 16, temperature 98 degrees, pulse ox 97% on room air. HEENT: Conjunctivae normal. NECK: No jugular venous distention. CARDIOVASCULAR: S1, S2. RESPIRATORY: Breath sounds diminished in the bases. A few scattered rhonchi. No crackles. ABDOMEN: Soft, nontender. LEGS: No edema. NERVOUS SYSTEM: No focal deficits. PAST MEDICAL HISTORY: Reviewed. REVIEW OF SYSTEMS: CARDIOVASCULAR: No angina. RESPIRATORY: As mentioned. GI: As mentioned. : As mentioned. NERVOUS SYSTEM: No numbness, weakness. CURRENT MEDICATIONS: Reviewed and include: 1. Tylenol 650 q.4 hours. 2. Zyloprim 300 mg. 3. Norvasc 5 mg daily. 4. Aspirin 81 mg. 5. Lipitor 10 mg. 6. Rocaltrol. 7. TUMS. 8. 2 g IV b.i.d. 9. Vitamin D2 50,000 subcu 30 days. 10.Iron sulfate. 11.NovoLog scale. 12.Levemir 25 units subcu q.h.s. 13.EMLA cream. 14.Zestril 2.5 mg q.h.s. 15.Zofran. 16.Protonix 40 mg b.i.d. 17.Ultram. 18.Vancomycin. LABS: WBC 6.2, hemoglobin 10.5, creatinine is 1.13. ASSESSMENT: 1. Fever, possible sepsis following chemotherapy. 2. Dysphagia, retrosternal discomfort, rule out radiation esophagitis. 3. Thrombocytopenia. 4. Increased WBC. 5. Increased creatinine with possible mild acute renal failure. 6. Diabetes mellitus type 2. 7. History of thymus cancer with chemo and radiation. 8. Hypertension. 9. Hyperlipidemia. 10.History of squamous cell cancer. 11.History of ileostomy. 12.History of ulcerative colitis. RECOMMENDATIONS AND DISCUSSION: I recommend to continue current management and symptomatic treatment. Continue broad- spectrum IV antibiotics. I would also recommend infectious disease evaluation also. Other than that, otherwise proton pump inhibitors. Cutback the diet and continue with broad-spectrum IV antibiotics. Diet may be advanced once the patient is less symptomatic. aimee Bullock. Guarded prognosis because of multiple complex medical issues. Further recommendations to follow. Avoid NSAIDs at this time. The troponins are negative and the basic cardiac workup is negative with normal EKG at this time. I will repeat an EKG. MMODL / IJN: [id number] / [facility]
[2017-12-05 17:29] LABS: Glucose,Whole Blood 125 mg/dL (75-99)
[2017-12-05] MEDS ORDERED: PANTOPRAZOLE 40 MG TABLET PO SCH (17:30)
[2017-12-05 19:13] LABS: Hemoglobin A1C 7.4 % (4.0-6.0)
--- NOTE | 2017-12-05 20:44 | CONS ---
CONSULTATION DATE OF SERVICE: 12/05/2017. REASON FOR CONSULTATION: Fever. HISTORY OF PRESENT ILLNESS: The patient is a 77-year-old female presenting to the ER at [facility] last night with chief complaints of fever that apparently started yesterday. The patient did have a fever of 100.3 at home and she says she felt warm. Denies having any rigors or chills with it. The patient who does have history of underlying cancer and is getting chemotherapy with last chemo done on thru the right chest wall MediPort. The patient denies having any headache. No significant URI symptoms. No chest pain or shortness of breath. Very minimal cough which is dry in nature. The patient denies any abdominal pain and no diarrhea. No burning or frequency of urine. Denies having any swelling, redness of the leg or any open wounds. With these symptoms, the patient has been evaluated by the ER physician. On arrival to the ER, the patient did have a fever of 100.9, subsequently did spike a fever of 100.9-100.4 and afebrile this morning. The patient did have elevated white count of 11.8, subsequently 6.8 today. Mildly elevated creatinine of 1.13. Urine did shows moderate leukocyte esterases, some WBC with culture pending. The patient did have influenza PCR that was negative. Chest x-ray has been done which shows elevation of the right hemidiaphragm with right basilar volume loss which is not new for her and density peripheral left mid lung, not previously seen. The patient has been treated with broad- spectrum antibiotic in the form of cefepime and vancomycin. Infectious Disease was consulted for further recommendations regarding antibiotic therapy. REVIEW OF SYSTEMS: Constitutional: Positive for weakness along with the fever as mentioned above. Eyes: No complaint. ENT: No complaint. Respiratory as per HPI. Cardiovascular: No complaint. ENT no complaint. Gastrointestinal: No complaint. Musculoskeletal no complaint. Integumentary: No complaint. Psychological: No complaint. ENDOCRINE: No complaint. Neurological no complaint. PAST MEDICAL HISTORY: Significant for ulcerative colitis, status post colectomy and ileostomy. The patient also have a thymus cancer with radiation and chemo. Last chemo was on , hypertension, hyperlipidemia, insulin-dependent diabetes mellitus. PAST SURGICAL HISTORY: Significant for the colectomy and ileostomy. Skin cancer removal that was biopsied, left kidney removal, Mediport placement. SOCIAL HISTORY: Remote history of smoking. No drinking or drug use. FAMILY HISTORY: Father history of diabetes and ulcerative colitis. Mother history of coronary disease and from a cerebral bleed post fall. ALLERGIES: TO SULFA AND METFORMIN. MEDICATIONS: Include the patient is currently on Tylenol, Zyloprim, Norvasc, aspirin, Lipitor, TUMS, cefepime, vitamin D2, iron sulfate, NovoLog, Levemir, Zestril, Zofran, Protonix, Ultram, and vancomycin pharmacy to dose. EXAMINATION: Blood pressure 129/57, pulse of 83, temperature of 98. She is 94% on room air. General description is an elderly female up in the bed in no distress. No tachypnea or accessory muscle of respiration use. HEENT: Shows mild pallor. No scleral icterus. Oral mucosa membranes is moist. No pharyngeal edema, thrush. Neck trachea central. No thyromegaly. Lungs unlabored breathing with decreased breath sounds at the bases. No wheeze or crackles. Heart S1, S2. Regular rate and rhythm. No murmur. ABDOMEN: Soft, no tenderness. No guarding or rigidity. No organomegaly. EXTREMITIES: No edema of the feet. Skin examination: No rash or mass palpable. Right chest wall MediPort site looks clean with no swelling. No redness. Neurological: Patient is awake, alert, oriented x3. Mood and affect normal. LABS: Hemoglobin is 10.5, white count 6.8, admission white count was 11.8 with a BUN of 23, creatinine 1.13. Liver exam has been normal. Electrolytes are normal. Urine did shows moderate leukocyte esterases, some WBC with cultures pending. Influenza serology was negative. DIAGNOSTIC IMPRESSION/PLAN: 1. Patient with fever in a patient who is immunocompromised, undergoing chemotherapy for her thymus cancer, with last chemo about a week ago presenting with fever but not very clear localizing focus of infection. The patient with no respiratory symptoms or any findings on clinical examination except decreased on the right base suspicious for pneumonia. Abdomen soft on clinical examination. She did have mildly positive UA underlying urinary tract infection to be likely considered. The patient also does have a Mediport. Line sepsis will be the other possible source of this fever though MediPort site looks clean. In view of underlying immunocompromised state, recommend keeping the patient on broad spectrum antibiotic to cover for the resistant gram positive as well as gram-negative while awaiting for the cultures to finalize. 2. Patient to have antibiotic allergies that do limit the number of antibiotics that could be safely used. 3. Comorbid conditions including diabetes and nephrectomy hence her kidney functions need to be monitored very closely while on vancomycin. PLAN: 1. Vancomycin pharmacy to dose to target 15 along with cefepime 2 g q.12 hours to provide adequate coverage for gram-positive and gram-negative. 2. We will need to watch her kidney function very closely and cultures will follow daily. 3. Depending upon clinical response as well as cultures will adjust her medications further if needed. Thank you for this consultation. We will follow this patient along with you. MMODL / IJN: [id number] /
[2017-12-05 20:48] LABS: Glucose,Whole Blood 133 mg/dL (75-99)
[2017-12-05] MEDS: FERROUS SULFATE 325 MG TAB PO SCH (21:24)
[2017-12-05] MEDS: ATORVASTATIN 20 MG TAB PO SCH (21:24)
[2017-12-05] MEDS: ASPIRIN 81 MG PO SCH (21:24)
[2017-12-05] MEDS: LISINOPRIL 2.5 MG TAB PO SCH (21:25)
[2017-12-05] MEDS: INSULIN DETEMIR 100 UNIT/ML 10 ML VIAL SQ SCH (22:38)
--- NOTE | 2017-12-06 00:27 | P.CONS ---
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 Linares for a diagnosis of squamous cell carcinoma diagnosed from a CT angiogram on 05/22/2017 revealing a very large anterior mediastinal mass,1.1cm RUL nodule. On 06/29/2017,PET scan revealed very suspicious uptake in large anterior mediastinal mass (SUV of 11.28),1.0cm RUL nodule (SUV 2.69) and RML nodule, 1.1cm (SUV 4.2). 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 She was evaluated by Dr Acosta and felt not to be a surgical candidate. She started carboplatin/taxol on 10/17/2017. Repeat CT scan of chest on 11/11/2017 revealed stable disease. She received two q3 week cycles, but was switched to weekly regimen for better tolerance of treatment. She now presents to [facility] with complaints of fever, SOB, and UTI. She has an ostomy bag from an acute colitis event approx 20 years ago. Per her and her daughter, she has chronic UTIs. She has been started on antibiotics and her fevers have improved over the past 24 hours (afebrile today). Her last chemotherapy was on 11/28/17. She has no other acute complaints, her daughter is at bedside assisting with history. 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 started radiation tx 11-28-17 (5 times a week) kidney disease ulcerative colitis History of Any Multi-Drug Resistant Organisms: None Reported Past Surgical History: Bowel Resection Additional Past Surgical History / Comment(s): ileostomy, rectal removal, kidney stone remove, left kidney removed"it was a kidney" colonoscopy, power port rt upper chest. Past Anesthesia/Blood Transfusion Reactions: No Reported Reaction Smoking Status: Former smoker - Past Family History Father Family Medical History: Diabetes Mellitus Additional Family Medical History / Comment(s): ULCERATIVE COLITIS. Mother Family Medical History: Coronary Artery Disease (CAD) Additional Family Medical History / Comment(s): CARDIAC STENTS. FROM A BRAIN BLEED POST FALL Medications and Allergies Home Medications Medication Instructions Recorded Confirmed Type Allopurinol [Zyloprim] 300 mg PO DAILY 04/22/14 12/04/17 History Ergocalciferol [Vitamin D2 50,000 unit PO Q30D 04/22/14 12/04/17 History (DRISDOL)] Insulin Aspart [NovoLOG See Protocol SQ ACHS PRN 04/22/14 12/04/17 History (formulary)] Insulin Detemir [Levemir] 25 unit SQ HS 04/22/14 12/04/17 History Simvastatin [Zocor] 40 mg PO HS 04/22/14 12/04/17 History Aspirin EC [Ecotrin Low Dose] 81 mg PO HS 04/25/15 12/04/17 History Denosumab [Prolia] 60 mg SQ Q180D 12/30/15 12/04/17 History amLODIPine [Norvasc] 5 mg PO DAILY 12/30/15 12/04/17 History Calcitriol [Rocaltrol] 0.25 mcg PO MO 05/22/17 12/04/17 History Lisinopril [Zestril] 2.5 mg PO HS 05/22/17 12/04/17 History Sodium Bicarbonate Tab 650 mg PO DAILY 05/22/17 12/04/17 History Turmeric Root Extract [Turmeric] 500 mg PO DAILY 05/22/17 12/04/17 History Acetaminophen [Tylenol Extra 1,000 mg PO Q8HR PRN 08/28/17 12/04/17 History Strength] Calcium Carbonate [Calcium] 600 mg PO DAILY 12/04/17 12/04/17 History Ferrous Sulfate [Iron] 325 mg PO HS 12/04/17 12/04/17 History Lidocaine-Prilocaine Cream [Emla 1 applic TOPICAL DAILY 12/04/17 12/04/17 History Cream 2.5%/2.5%] Ondansetron [Zofran] 4 mg PO Q12HR PRN 12/04/17 12/04/17 History Allergies Allergy/AdvReac Type Severity Reaction Status Date / Time celecoxib [From Celebrex] Allergy Rash/Hives Verified 12/04/17 16:44 Sulfa (Sulfonamide Allergy Rash/Hives Verified 12/04/17 16:44 Antibiotics) valdecoxib [From Bextra] Allergy Rash/Hives Verified 12/04/17 16:44 metformin AdvReac Nausea Verified 12/04/17 16:44 Physical Exam Vitals: Vital Signs Temp Pulse Resp BP Pulse Ox 12/05/17 16:00 83 18 12/05/17 15:00 98.0 F 83 18 129/57 94 L 12/05/17 08:00 72 16 12/05/17 07:00 98 F 72 16 130/60 97 12/04/17 23:23 18 12/04/17 22:31 99.0 F 102 H 18 152/82 97 Intake and Output 12/05/17 12/05/17 12/05/17 06:59 14:59 22:59 Intake Total 250 Balance 250 Intake: Intake, IV Titration 250 Amount Vancomycin 1,500 mg In 250 Sodium Chloride 0.9% 250 ml @ 125 mls/hr IVPB DAILY [facility] Rx#:[id number] Other: # Voids 1 1 Weight 81.647 kg 81.647 kg 81.647 kg Patient Weight 12/06/17 06:59 Weight 81.647 kg - Constitutional General appearance: morbidly obese - EENT Eyes: EOMI, PERRLA, dentition normal ENT: hearing grossly normal, normal oropharynx - Neck Neck: normal ROM Thyroid: bilateral: normal size - Respiratory Respiratory: bilateral: diminished (bibasilar) - Cardiovascular Rhythm: regular Heart sounds: normal: S1, S2 - Gastrointestinal General gastrointestinal: normal bowel sounds, soft - Integumentary Integumentary: normal, pale - Neurologic no focal defects noted Neurologic: CNII-XII intact - Musculoskeletal Musculoskeletal: gait normal, generalized weakness, strength equal bilaterally - Psychiatric Psychiatric: A&O x's 3, appropriate affect, intact judgment & insight Results CBC & Chem 7: 12/05/17 04:11 12/05/17 04:11 Labs: Abnormal Lab Results - Last 24 Hours (Table) 12/04/17 12/05/17 12/05/17 Range/Units 21:36 04:11 04:11 RBC 3.60 L (3.80-5.40) m/uL Hgb 10.5 L (11.4-16.0) gm/dL Hct 33.1 L (34.0-46.0) % RDW 16.1 H (11.5-15.5) % Plt Count 103 L (150-450) k/uL Lymphocytes # 0.9 L (1.0-4.8) k/uL Chloride 110 H (98-107) mmol/L BUN 23 H (7-17) mg/dL Creatinine 1.13 H (0.52-1.04) mg/dL Glucose 115 H (74-99) mg/dL POC Glucose (mg/dL) 256 H (75-99) mg/dL Calcium 7.8 L (8.4-10.2) mg/dL 12/05/17 12/05/17 12/05/17 Range/Units 07:14 11:50 17:27 RBC (3.80-5.40) m/uL Hgb (11.4-16.0) gm/dL Hct (34.0-46.0) % RDW (11.5-15.5) % Plt Count (150-450) k/uL Lymphocytes # (1.0-4.8) k/uL Chloride (98-107) mmol/L BUN (7-17) mg/dL Creatinine (0.52-1.04) mg/dL Glucose (74-99) mg/dL POC Glucose (mg/dL) 120 H 132 H 125 H (75-99) mg/dL Calcium (8.4-10.2) mg/dL Microbiology - Last 24 Hours (Table) 12/04/17 16:10 Blood Culture - Preliminary Blood No Growth after 24 hours 12/04/17 17:30 Urine Culture - Preliminary Urine,Clean Catch Chest x-ray: report reviewed Assessment and Plan (1) Thymus cancer Narrative/Plan: Currently undergoing chemotherapy with weekly Carboplatin and Taxol, Last treatment 11/28/17 1. Hold Chemotherapy until after acute infectious process resolves, follow-up with Dr. Linares after discharge to resume. Current Visit: Yes Status: Acute Code(s): C37 - MALIGNANT NEOPLASM OF THYMUS SNOMED Code(s): 826807236 (2) Anemia Narrative/Plan: Secondary to chemotherapy Monitor CBC daily, if less than 7 may provide supportive transfusion. Current Visit: Yes Status: Acute Code(s): D64.9 - ANEMIA, UNSPECIFIED SNOMED Code(s): 633964697 (3) Thrombocytopenia Narrative/Plan: Secondary to chemotherapy, stable, monitor CBC Current Visit: Yes Status: Acute Code(s): D69.6 - THROMBOCYTOPENIA, UNSPECIFIED SNOMED Code(s): 613101459 (4) Community acquired pneumonia Narrative/Plan: IV Antibiotics. cultures are pending. Switch to by mouth antibiotics, whenever felt to be appropriate by the admitting service Current Visit: No Status: Acute Code(s): J18.9 - PNEUMONIA, UNSPECIFIED ORGANISM SNOMED Code(s): 029746720
[2017-12-06] MEDS: CEFEPIME 2 GM in SODIUM CHLORIDE 0.9% 50 ML IVPB SCH ×2 (06:28→17:48)
[2017-12-06 07:29] LABS: Glucose,Whole Blood 104 mg/dL (75-99)
[2017-12-06] MEDS: INSULIN ASPART 100 UNIT/ML 1 ML 10 ML VIAL SQ SCH ×5 (07:36→22:00)
[2017-12-06 08:11] LABS: Calcium 7.5 mg/dL (8.4-10.2); Potassium 4.7 mmol/L (3.5-5.1)
[2017-12-06 08:16] LABS: Basophils % (A) 1 %; Eosinophils # (A) 0.1 k/uL (0-0.7); Eosinophils % (A) 3 %; HCT 30.5 % (34.0-46.0); HGB 9.4 gm/dL (11.4-16.0); Hypochromasia Slight; Lymphocytes # (A) 0.5 k/uL (1.0-4.8); Lymphocytes % (A) 13 %; MCH 29.3 pg (25.0-35.0); MCHC 30.8 g/dL (31.0-37.0); Mean Platelet Volume 7.8; Monocytes # (A) 0.3 k/uL (0-1.0); Monocytes % (A) 6 %; Neutrophils # (A) 3.1 k/uL (1.3-7.7); Neutrophils % (A) 76 %; Platelet Count 101 k/uL (150-450); RBC 3.21 m/uL (3.80-5.40); RDW 15.8 % (11.5-15.5); WBC 4.1 k/uL (3.8-10.6)
[2017-12-06] MEDS: ALLOPURINOL 300 MG TAB PO SCH (08:16)
[2017-12-06] MEDS: PANTOPRAZOLE 40 MG TABLET PO SCH ×2 (08:16→17:45)
[2017-12-06] MEDS: amLODIPine 5 MG TAB PO SCH (08:17)
[2017-12-06] MEDS: SODIUM BICARBONATE TAB 650 MG TAB PO SCH (08:17)
[2017-12-06] MEDS: LIDOCAINE-PRILOCAINE 2.5-2.5% CREAM 5 GM TUBE TOPICAL SCH (08:17)
[2017-12-06] MEDS: VANCOMYCIN 1,500 MG in SODIUM CHLORIDE 0.9% 250 ML IVPB SCH (08:18)
[2017-12-06] MEDS: [UNRECOGNIZED DRUG - OTHER] PO SCH (08:18)
[2017-12-06] MEDS: traMADol 50 MG TAB PO PRN ×2 (11:00→17:45)
[2017-12-06] MEDS: CALCIUM CARBONATE 500 MG CHEWABLE PO SCH (11:02)
[2017-12-06 12:05] LABS: Glucose,Whole Blood 137 mg/dL (75-99)
[2017-12-06] MEDS: ONDANSETRON 4 MG/2 ML VIAL IVP PRN ×2 (12:17→19:37)
--- NOTE | 2017-12-06 16:06 | PN ---
PROGRESS NOTE DATE OF SERVICE: 12/06/17 REASON FOR FOLLOWUP: Fever and possible UTI. INTERVAL HISTORY: The patient overall feels better and has improved. Apparently the patient did receive a dose of tramadol oral this morning. Since then the patient has a complaint of some nausea. Did not have any vomiting. No abdominal pain. She did have an ileostomy from her previous colectomy and no worsening output. No chest pain, shortness of breath or cough. PHYSICAL EXAMINATION: Blood pressure 119/67 with a pulse of 71, temperature 98.1. She is 94% on room air. General description is an elderly female lying in bed in no distress. Respiratory system: Unlabored breathing. Some decreased breath sounds in the bases. No wheeze. Heart S1, S2. Regular rate and rhythm. Abdomen soft, no tenderness. LABS: Hemoglobin 9.4, white count 4.1. BUN of 20, creatinine 1.16. Culture has been negative so far. DIAGNOSTIC IMPRESSION AND PLAN: Patient with fever in a patient who already does have underlying malignancy on chemo. Culture possible for urinary tract infection and further clinical focus of infection. Culture has been negative so far. We will keep the patient on cefepime while waiting for the culture to finalize. Family present at bedside. Their questions were answered. MMODL / IJN: [id number] /
[2017-12-06 17:09] LABS: Glucose,Whole Blood 127 mg/dL (75-99)
--- NOTE | 2017-12-06 18:18 | PN ---
PROGRESS NOTE DATE OF SERVICE: 12/06/2017 This 77-year-old woman was admitted for fever with possible sepsis on empiric antibiotics. No chest pain. No palpitations. No fever. Cultures negative so far. EXAM: Alert and oriented x3. Pulse 86, blood pressure 130/76, respirations 16, temperature 98.2, pulse ox 72% on room air. HEENT: Conjunctivae normal. NECK: No jugular venous distention. CARDIOVASCULAR: S1, S2. RESPIRATORY: Breath sounds diminished in the bases. No rhonchi, no crackles. ABDOMEN: Soft, nontender. LEGS: No edema. NERVOUS SYSTEM: No focal deficits. LABS: WBC 4.1, hemoglobin 9.4. Creatinine is 1.16. ASSESSMENT: 1. Fever, possible sepsis following chemotherapy. 2. Dysphagia, retrosternal discomfort improved, possibly radiation esophagitis. 3. Thrombocytopenia. 4. Increased WBC. 5. Increased creatinine with possible mild acute renal failure present on admission. 6. Diabetes mellitus type 2. 7. History of thymus cancer with chemo and radiation. 8. Hypertension. 9. Hyperlipidemia. 10.History of squamous cell cancer. 11.History ileostomy. 12.History of ulcerative colitis. RECOMMENDATIONS AND DISCUSSION: Recommend to continue current management, symptomatic treatment. Continue with empiric antibiotics. Await final culture report. Closely follow with Infectious Disease and as well as Hematology Oncology. Further recommendations to follow. MMODL / IJN: [id number] /
[2017-12-06 19:57] LABS: Glucose,Whole Blood 234 mg/dL (75-99)
[2017-12-06] MEDS: INSULIN DETEMIR 100 UNIT/ML 10 ML VIAL SQ SCH (21:45)
[2017-12-06] MEDS: ASPIRIN 81 MG PO SCH (21:46)
[2017-12-06] MEDS: FERROUS SULFATE 325 MG TAB PO SCH (21:46)
[2017-12-06] MEDS: ATORVASTATIN 20 MG TAB PO SCH (21:46)
[2017-12-06] MEDS: LISINOPRIL 2.5 MG TAB PO SCH (21:46)
[2017-12-07] MEDS: traMADol 50 MG TAB PO PRN ×4 (02:07→20:21)
[2017-12-07] MEDS: ONDANSETRON 4 MG/2 ML VIAL IVP PRN ×3 (02:07→13:54)
[2017-12-07] MEDS: CEFEPIME 2 GM in SODIUM CHLORIDE 0.9% 50 ML IVPB SCH ×2 (06:00→17:45)
[2017-12-07 06:44] LABS: Glucose,Whole Blood 94 mg/dL (75-99)
[2017-12-07 07:17] LABS: Basophils % (A) 0 %; Eosinophils # (A) 0.1 k/uL (0-0.7); Eosinophils % (A) 2 %; HCT 31.9 % (34.0-46.0); HGB 10.1 gm/dL (11.4-16.0); Lymphocytes # (A) 0.6 k/uL (1.0-4.8); Lymphocytes % (A) 16 %; MCH 29.4 pg (25.0-35.0); MCHC 31.6 g/dL (31.0-37.0); Mean Platelet Volume 7.3; Monocytes # (A) 0.2 k/uL (0-1.0); Monocytes % (A) 5 %; Neutrophils % (A) 75 %; Platelet Count 135 k/uL (150-450); RBC 3.43 m/uL (3.80-5.40); RDW 15.7 % (11.5-15.5)
[2017-12-07 07:39] LABS: Calcium 8.2 mg/dL (8.4-10.2); Potassium 5.1 mmol/L (3.5-5.1)
[2017-12-07] MEDS: INSULIN ASPART 100 UNIT/ML 1 ML 10 ML VIAL SQ SCH ×4 (07:52→21:45)
[2017-12-07] MEDS: PANTOPRAZOLE 40 MG TABLET PO SCH ×2 (07:57→17:45)
[2017-12-07] MEDS: amLODIPine 5 MG TAB PO SCH (07:57)
[2017-12-07] MEDS: SODIUM BICARBONATE TAB 650 MG TAB PO SCH (07:57)
[2017-12-07] MEDS: VANCOMYCIN 1,500 MG in SODIUM CHLORIDE 0.9% 250 ML IVPB SCH (07:57)
[2017-12-07] MEDS: ALLOPURINOL 300 MG TAB PO SCH (07:57)
[2017-12-07] MEDS: [UNRECOGNIZED DRUG - OTHER] PO SCH (07:58)
[2017-12-07 11:28] LABS: Glucose,Whole Blood 131 mg/dL (75-99)
[2017-12-07 17:33] LABS: Glucose,Whole Blood 200 mg/dL (75-99)
[2017-12-07 19:59] LABS: Glucose,Whole Blood 148 mg/dL (75-99)
[2017-12-07] MEDS ORDERED: SCOPOLAMINE 1.5MG/72HR PATCH TRANSDERM SCH (20:00)
[2017-12-07] MEDS: ASPIRIN 81 MG PO SCH (21:45)
[2017-12-07] MEDS: LISINOPRIL 2.5 MG TAB PO SCH (21:45)
[2017-12-07] MEDS: INSULIN DETEMIR 100 UNIT/ML 10 ML VIAL SQ SCH (21:45)
[2017-12-07] MEDS: ATORVASTATIN 20 MG TAB PO SCH (21:45)
[2017-12-07] MEDS: FERROUS SULFATE 325 MG TAB PO SCH (21:45)
[2017-12-08] MEDS: CEFEPIME 2 GM in SODIUM CHLORIDE 0.9% 50 ML IVPB SCH ×2 (05:01→17:58)
[2017-12-08] MEDS: traMADol 50 MG TAB PO PRN ×2 (05:10→16:45)
[2017-12-08] MEDS: ONDANSETRON 4 MG/2 ML VIAL IVP PRN ×2 (05:10→16:45)
[2017-12-08 07:05] LABS: Glucose,Whole Blood 107 mg/dL (75-99)
[2017-12-08 07:35] LABS: Basophils % (A) 1 %; Eosinophils # (A) 0.1 k/uL (0-0.7); Eosinophils % (A) 2 %; HCT 31.7 % (34.0-46.0); HGB 9.9 gm/dL (11.4-16.0); Lymphocytes # (A) 0.6 k/uL (1.0-4.8); Lymphocytes % (A) 15 %; MCH 29.1 pg (25.0-35.0); MCHC 31.2 g/dL (31.0-37.0); MCV 93.3 fL (80.0-100.0); Mean Platelet Volume 7.4; Monocytes # (A) 0.3 k/uL (0-1.0); Monocytes % (A) 8 %; Neutrophils # (A) 2.7 k/uL (1.3-7.7); Neutrophils % (A) 71 %; Platelet Count 146 k/uL (150-450); RDW 15.9 % (11.5-15.5); WBC 3.8 k/uL (3.8-10.6)
[2017-12-08] MEDS: INSULIN ASPART 100 UNIT/ML 1 ML 10 ML VIAL SQ SCH ×4 (07:46→21:55)
[2017-12-08] MEDS: [UNRECOGNIZED DRUG - OTHER] PO SCH (07:47)
[2017-12-08] MEDS ORDERED: VANCOMYCIN TROUGH DUE 1 EACH MISC MISCELLANE ONE (08:00)
[2017-12-08 08:02] LABS: Calcium 8.1 mg/dL (8.4-10.2); Potassium 4.5 mmol/L (3.5-5.1)
[2017-12-08] MEDS: SODIUM BICARBONATE TAB 650 MG TAB PO SCH (10:04)
[2017-12-08] MEDS: VANCOMYCIN 1,500 MG in SODIUM CHLORIDE 0.9% 250 ML IVPB SCH (10:04)
[2017-12-08] MEDS: PANTOPRAZOLE 40 MG TABLET PO SCH ×2 (10:04→18:02)
[2017-12-08] MEDS: amLODIPine 5 MG TAB PO SCH (10:04)
[2017-12-08] MEDS: ALLOPURINOL 300 MG TAB PO SCH (10:05)
--- NOTE | 2017-12-08 11:15 | PN ---
PROGRESS NOTE DATE OF SERVICE: 12/07/17. PRESENTING COMPLAINT: Tired. INTERVAL HISTORY: This patient is seen by me yesterday on 12/07/17. Patient admitted with sepsis with suspected cause of UTI. Fevers have come down. Daughter is at the bedside. The patient is able to tolerate some liquids, although she keeps getting a lot of nausea. I ordered a scopolamine patch. The patient's ostomy bag is working. REVIEW OF SYSTEMS: Done for constitutional, cardiovascular, GI, pulmonary; relevant findings as above. CURRENT MEDICATIONS: Reviewed that include IV cefepime, IV vancomycin. PHYSICAL EXAMINATION: On examination, afebrile. Pulse 77, respirations 16, blood pressure 149/65, pulse ox 92% on room air. GENERAL APPEARANCE: Well built, BMI 36.4, sitting up tired-appearing. EYES: Pupils equal. Conjunctivae slightly pale. HEENT: External appearance of nose and ears normal. Oral cavity normal. Alopecia. RESPIRATORY: Effort normal, lungs are clear. CARDIOVASCULAR: 1st and 2nd sounds normal. No edema. ABDOMEN: Soft, nontender. Liver and spleen not palpable. Ostomy bag with liquid stool present. PSYCHIATRY: Alert and orient x3. Mood and affect normal. INVESTIGATIONS: White count 4, hemoglobin 10.1, potassium 5.1, BUN 16, creatinine 1.16. All cultures are negative till now. ASSESSMENT: 1. Acute sepsis present on admission from acute urinary tract infection. Cultures have been negative. 2. Obesity; BMI 36.4. 3. Squamous cell carcinoma of the thymus. The patient has received chemotherapy and is getting radiation treatment, being followed by Dr. Linares. 4. Clinical dehydration from decreased oral intake. 5. Normocytic anemia from underlying malignancy. 6. Thrombocytopenia, mild could be from chemotherapy in the form of bicytopenia. 7. Essential hypertension. 8. Hyperlipidemia. 9. Chronic ileostomy bag for bowel resection for ulcerative colitis. 10.History of left nephrectomy. 11.Port on the right upper chest wall. PLAN: Continue current medication and treatment plan. I told the patient to take more of shakes and Ensure. This was discussed with the patient daughter in detail. Antibiotics are to continue. Cultures remain to be negative. Encouraged the patient to be out of bed on the chair and also scopolamine patch was given. MMODL / IJN: [id number] /
[2017-12-08 12:31] LABS: Glucose,Whole Blood 185 mg/dL (75-99)
[2017-12-08 17:25] LABS: Glucose,Whole Blood 200 mg/dL (75-99)
[2017-12-08 20:21] LABS: Glucose,Whole Blood 137 mg/dL (75-99)
--- NOTE | 2017-12-08 20:57 | PN ---
PROGRESS NOTE DATE OF SERVICE: 12/08/2017. PRESENTING COMPLAINT: Tired. INTERVAL HISTORY: Patient admitted with sepsis, suspected to be from UTI. Patient being treated for thymus malignancy. Doing better. No more fevers. Able to tolerate some yogurt, sandwich. Colostomy bag is working fine. Has been out of bed. The patient's daughter is at the bedside. REVIEW OF SYSTEMS: Done for constitutional, cardiovascular, GI, pulmonary; relevant findings as above. CURRENT MEDICATIONS: Reviewed, that include IV cefepime and IV vancomycin. PHYSICAL EXAMINATION: Afebrile, pulse 63, respirations 16, blood pressure 147/72, pulse ox 91% on room air. GENERAL APPEARANCE: Sitting up in the bed comfortable. EYES: Pupils equal. Conjunctivae pale. HEENT: External appearance of nose and ears normal. Oral cavity normal. Alopecia. RESPIRATORY: Effort normal. Lungs are clear. CARDIOVASCULAR: 1st and 2nd sounds normal. No edema. ABDOMEN: Soft, nontender. Liver and spleen not palpable. Ostomy back with stool present. PSYCHIATRY: Alert, oriented x3. Mood and affect normal. INVESTIGATIONS: White count 3.8, hemoglobin 9.9, potassium 4.5, BUN 14, creatinine 1.10. Accu-Cheks are noted. ASSESSMENT: 1. Acute sepsis present on admission, from urinary tract infection. Cultures have remained negative, with clinical improvement. 2. Obesity; body mass index 36.4. 3. Squamous cell carcinoma of the thymus. The patient received chemotherapy and getting radiation treatment, being followed by Dr. Linares. 4. Clinical dehydration from decreased oral intake, now improved. 5. Normocytic anemia from underlying malignancy. 6. Thrombocytopenia, mild, could be from chemotherapy in the form of bicytopenia. 7. Essential hypertension. 8. Hyperlipidemia. 9. 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 10.History of left nephrectomy. 11.The patient has got a port on the right chest wall. 12.Persistent nausea, probably from recent chemo or sepsis, with much improvement. PLAN: Continue current medication and treatment plan. If remains afebrile, can be switched to oral antibiotic, hopefully tomorrow. The patient's nausea is greatly improved with a scopolamine patch. Care was discussed the patient and daughter at the bedside. MMODL / IJN: [id number] /
--- NOTE | 2017-12-08 21:21 | PN ---
PROGRESS NOTE DATE OF SERVICE: 12/08/2017. REASON FOR FOLLOW UP: Fever, possible UTI. INTERVAL HISTORY: The patient is afebrile. She has been breathing more comfortably. Denies significant chest pain or cough. No abdominal pain. No diarrhea. EXAMINATION: Blood pressure 148/68, with a pulse of 77, temperature 98.6. He is 92% on room air. General description is an elderly female up in the bed in no distress. Respiratory system unlabored breathing, clear to auscultation. Heart S1, S2. Regular rate and rhythm. Abdomen soft. Extremities, no edema of the feet. LABS: Hemoglobin 9.9, white count 3.8. BUN of 14, creatinine 1.10. Blood culture negative. Urine is so far negative. DIAGNOSTIC IMPRESSION AND PLAN: Patient with no fever with possible urinary tract infection. The patient did have a positive UA, though cultures have been negative. White count normalized. We will go ahead and discontinue the vancomycin. Keep the patient on cefepime with therapy with oral Levaquin for short course. Continue supportive care. MMODL / IJN: [id number] /
[2017-12-08] MEDS: INSULIN DETEMIR 100 UNIT/ML 10 ML VIAL SQ SCH (21:54)
[2017-12-08] MEDS: FERROUS SULFATE 325 MG TAB PO SCH (21:54)
[2017-12-08] MEDS: LISINOPRIL 2.5 MG TAB PO SCH (21:54)
[2017-12-08] MEDS: ATORVASTATIN 20 MG TAB PO SCH (21:54)
[2017-12-08] MEDS: ASPIRIN 81 MG PO SCH (21:54)
[2017-12-09] MEDS: CEFEPIME 2 GM in SODIUM CHLORIDE 0.9% 50 ML IVPB SCH (05:35)
[2017-12-09] MEDS: traMADol 50 MG TAB PO PRN ×2 (05:47→13:05)
[2017-12-09] MEDS: ONDANSETRON 4 MG/2 ML VIAL IVP PRN ×2 (05:47→12:50)
[2017-12-09 07:01] LABS: Glucose,Whole Blood 127 mg/dL (75-99)
[2017-12-09 07:42] LABS: Anisocytosis Slight; Basophils % (A) 1 %; Eosinophils # (A) 0.1 k/uL (0-0.7); Eosinophils % (A) 4 %; HCT 31.5 % (34.0-46.0); HGB 10.1 gm/dL (11.4-16.0); Lymphocytes # (A) 0.6 k/uL (1.0-4.8); Lymphocytes % (A) 19 %; MCH 29.6 pg (25.0-35.0); MCHC 32.1 g/dL (31.0-37.0); MCV 92.3 fL (80.0-100.0); Mean Platelet Volume 7.2; Monocytes # (A) 0.3 k/uL (0-1.0); Monocytes % (A) 8 %; Neutrophils # (A) 2.2 k/uL (1.3-7.7); Neutrophils % (A) 68 %; Platelet Count 154 k/uL (150-450); RBC 3.41 m/uL (3.80-5.40); WBC 3.2 k/uL (3.8-10.6)
[2017-12-09 07:52] LABS: Calcium 8.4 mg/dL (8.4-10.2); Potassium 4.7 mmol/L (3.5-5.1)
[2017-12-09] MEDS: INSULIN ASPART 100 UNIT/ML 1 ML 10 ML VIAL SQ SCH ×2 (08:12→13:02)
[2017-12-09] MEDS: ALLOPURINOL 300 MG TAB PO SCH (08:13)
[2017-12-09] MEDS: PANTOPRAZOLE 40 MG TABLET PO SCH (08:13)
[2017-12-09] MEDS: amLODIPine 5 MG TAB PO SCH (08:13)
[2017-12-09] MEDS: SODIUM BICARBONATE TAB 650 MG TAB PO SCH (08:13)
[2017-12-09] MEDS: [UNRECOGNIZED DRUG - OTHER] PO SCH (08:14)
[2017-12-09] MEDS: VANCOMYCIN 1,500 MG in SODIUM CHLORIDE 0.9% 250 ML IVPB SCH (08:14)
[2017-12-09] MEDS ORDERED: CALCITRIOL 0.25 MCG CAP PO SCH (12:00)
[2017-12-09 12:08] LABS: Glucose,Whole Blood 126 mg/dL (75-99)
[2017-12-09 14:19] VITALS: BP 123/72; PULSE 76; RESP 18; TEMP 98.6
--- NOTE | 2017-12-09 15:25 | PN ---
PROGRESS NOTE DATE OF SERVICE: 12/09/2017. REASON FOR FOLLOWUP: Fever and possible UTI. INTERVAL HISTORY: The patient is afebrile. She is currently breathing comfortably. Denies having any chest pain or shortness of breath or cough. No abdominal pain. No further nausea, vomiting and no diarrhea. EXAMINATION: Blood pressure 123/72 with a pulse of 73, temperature 98.6. She is 92% on room air. General description is an elderly female up in the bed in no distress. Respiratory system unlabored breathing. Decreased breath sounds in the bases. No wheeze. Heart S1, S2. Regular rate and rhythm. Abdomen soft, no tenderness. LAB: Hemoglobin 10.1, white count 3.2 with BUN of 15, creatinine 1.13. Blood culture has been negative. Urine is negative. IMPRESSION/PLAN: Patient admitted to the hospital with a fever with possible UTI not entirely excluded. The patient noted improvement on the cefepime with plan to finish therapy with oral Levaquin for about 5 days. Plan of care discussed with the admitting physician. Continue supportive care. BOUBACARL / DOMINGON: [id number] / MTDD
--- NOTE | 2017-12-10 23:43 | DS ---
DISCHARGE SUMMARY DATE OF DISCHARGE: December 09, 2017. FINAL DIAGNOSES: 1. Acute sepsis present on admission from underlying urinary tract infection with cultures being negative. 2. Obesity; BMI 36.4. 3. Squamous cell carcinoma of the thymus. The patient is receiving chemotherapy and radiation treatment, being followed by Dr. Linares/oncologist. 4. Clinical dehydration, decreased oral intake, present on admission. 5. Normocytic anemia from underlying acute malignancy. 6. Thrombocytopenia could be from chemotherapy in the form of by cytopenia. 7. Essential hypertension. 8. Hyperlipidemia. 9. 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 10.History of left nephrectomy. 11.Patient has got a port on the right chest wall. 12.Persistent nausea, probably recent chemo, now resolved. HOSPITAL COURSE: This patient is getting chemo radiation by Dr. Linares, presented with acute sepsis, felt to be a UTI. Did get antibiotics to which she responded well. Cultures remain negative. The patient also had nausea that resolved, especially scopolamine patch. At the time of discharge was tolerating a diet, up and about. EXAMINATION: Lungs are clear. Cardiovascular 1st and second sounds normal. ABDOMEN: Soft, nontender. Cultures were negative. CONSULTATIONS: Dr. Kline from Infectious Disease, Dr. Ferreira from Oncology. Care was discussed in detail with the patient. DISCHARGE MEDICATIONS: 1. Allopurinol 300 mg a day. 2. Vitamin D2 22097 units p.o. every 30 days. 3. NovoLog q.a.c. q.h.s. p.r.n. 4. Levemir 25 units subcu q.h.s. 5. Zocor 40 mg q.h.s. 6. Aspirin 81 mg p.o. q.h.s. 7. Prolia 60 mg subcu every 180 days. 8. Norvasc 5 mg p.o. daily. 9. Rocaltrol 0.25 mcg p.o. daily on Saturday. 10.Zestril 2.5 q.h.s. 11.Sodium bicarb 650 mg p.o. daily. 12.Turmeric external extra strength 1000 mg p.o. q.8h p.r.n. 13.Calcium 600 mg p.o. daily. 14.Iron 325 p.o. q.h.s. 15.EMLA cream 2.5% topical daily. 16.Levaquin 500 mg p.o. daily for 5 days. 17.Prilosec 20 mg b.i.d. 18.Scopolamine patch every 72 hours for up to 9 days. FOLLOWUP: Follow up with Dr. Monroe on December 13, 2017. Follow up with Dr. Linares, keep appointment. EXAM: Lungs are clear. Cardiovascular 1st and second sounds normal. Abdomen soft, nontender. Copy to Dr. Monroe and Dr. Linares. MMODL / IJN: [id number] /
[2017-12-18] MEDS ORDERED: ERGOCALCIFEROL 50,000 UNIT CAP PO SCH (12:00)
== END 2017-12-09 15:25 | disposition home or self-care (01) | DRG 872 ==
LOC: EC 15:38 → 5MS5E 18:06 → 5ONC 12-05 10:35
PROVIDERS: ADMIT Hospitalist; ATTEND Hospitalist
DX: A41.9 Sepsis, unspecified organism (principal); N17.9 Acute kidney failure, unspecified; D69.6 Thrombocytopenia, unspecified; K51.90 Ulcerative colitis, unspecified, without complications; R13.10 Dysphagia, unspecified; E86.0 Dehydration; C37 Malignant neoplasm of thymus; N39.0 Urinary tract infection, site not specified; D63.0 Anemia in neoplastic disease; E11.9 Type 2 diabetes mellitus without complications; E66.9 Obesity, unspecified; E78.5 Hyperlipidemia, unspecified; I10 Essential (primary) hypertension; T45.1X5A Adverse effect of antineoplastic and immunosuppressive drugs, initial encounter; Z79.4 Long term (current) use of insulin; Z82.49 Family history of ischemic heart disease and other diseases of the circulatory system; Z83.3 Family history of diabetes mellitus; Z85.528 Personal history of other malignant neoplasm of kidney; Z85.828 Personal history of other malignant neoplasm of skin; Z85.850 Personal history of malignant neoplasm of thyroid; Z87.442 Personal history of urinary calculi; Z87.891 Personal history of nicotine dependence; Z90.49 Acquired absence of other specified parts of digestive tract; Z90.5 Acquired absence of kidney; Z93.2 Ileostomy status; Z93.3 Colostomy status; Z79.82 Long term (current) use of aspirin; Z79.899 Other long term (current) drug therapy; Z88.2 Allergy status to sulfonamides; Z88.8 Allergy status to other drugs, medicaments and biological substances
CPT/HCPCS: 36415; 71046; 80048; 80053; 80202; 81001; 82550; 82553; 83036; 83605; 83735; 84484; 85025; 85610; 85730; 87040; 87086; 87502; 93005; 96361; 96365; 99285

== ENCOUNTER → 2017-12-18 | Outpatient (CLI) | payer MEDICARE ==
[~2017-12-18] MED LIST changes: -ALPRAZolam 0.25 MG TAB PO ONE; +DENOSUMAB 60 MG/ML 1 ML SYRINGE SQ ONE; -HYDROmorphone 0.5 MG/0.5 ML SYRINGE IVP PRN
[2017-12-18 09:49] VITALS: BP 142/66; PULSE 85; RESP 16; TEMP 97.9
== END | disposition home or self-care (01) ==
LOC: PROCWHC3 08:55
PROVIDERS: ATTEND Physician Assistant
DX: M81.0 Age-related osteoporosis without current pathological fracture (principal)
CPT/HCPCS: 96372; J0897

== ENCOUNTER → 2018-02-26 | Outpatient (CLI) | payer MEDICARE ==
--- NOTE | 2018-02-26 14:51 | CT ---
EXAMINATION TYPE: CT chest w con DATE OF EXAM: 02/26/2018 COMPARISON: CT chest November 11, 2017 and older study June 01, 2017. PET/CT June 29, 2017. HISTORY: Follow up scan per patient CT DLP: 754 mGycm Automated exposure control for dose reduction was used. CONTRAST: CT scan of the chest is performed with IV Contrast, patient injected with 80 mL of Isovue 300. FINDINGS: LUNGS: There is persistent markedly elevated right hemidiaphragm with associated right basilar scarri ng and/or atelectasis redemonstrated. Anterior right upper lung nodule is diminished in size now pedrito uring 7 x 5 mm with semisolid appearance axial image 15. Smaller nodule anterior right lung base is n ot clearly identified to accurately measure on current study near axial image 33, some linear scarrin g and/or atelectasis at this level is present. Some new left lung linear scarring and/or atelectasis near axial image 33 is present. There is additional linear scarring and/or atelectasis in the left volodymyr ng base redemonstrated. No new suspicious nodule or mass is present. No pleural effusion or pneumotho rax is noted. MEDIASTINUM: There is curvilinear irregular soft tissue anterior to the ascending aorta corresponding to biopsy-proven thymus malignancy is diminished in size from prior PET/CT and prior CT measuring 3. 1 x 1.6 cm axial image 22 versus 4.9 x 2.4 cm prior study axial image 21. Indistinct fat plane from l eft brachiocephalic vein with likely encasement remains present. No new mediastinal mass or adenopath y is present. Calcified subcentimeter pericarinal lymph node is redemonstrated axial image 21. No si gnificant pericardial effusion is seen. Coronary artery catheterization is redemonstrated which is n oted marker for coronary artery disease. Mild cardiomegaly is stable. Right thyroid nodule suspected axial image 10 is felt stable. OTHER: There is stable right internal jugular Mediport catheter. Left kidney is not visualized. Low dense lesion at level of left renal fossa could reflect post nephrectomy seroma axial image 62 is sta ble. Moderate multilevel spurring in thoracic spine is redemonstrated IMPRESSION: Positive treatment response with diminished size of primary thymic mass or neoplasm and metastatic anterior right upper lung lesion. Right middle lobe basilar nodule not clearly seen on cur rent study. No new suspicious masses or adenopathy identified.
== END | disposition home or self-care (01) ==
LOC: RADPROMAIN 10:45
PROVIDERS: ATTEND Internal Medicine Hematology & Oncology
DX: C34.11 Malignant neoplasm of upper lobe, right bronchus or lung (principal); C38.1 Malignant neoplasm of anterior mediastinum
CPT/HCPCS: 82565; 84520; 71260; J1642; Q9967

== ENCOUNTER → 2018-03-15 | Outpatient (CLI) | payer MEDICARE ==
--- NOTE | 2018-03-16 09:19 | PE ---
EXAMINATION TYPE: PET CT fusion skull to thigh DATE OF EXAM: 03/15/2018 COMPARISON: Chest CT feb 26 2018 and older studies. Prior PET/CT June 29, 2017. HISTORY: Thymus cancer progress study. Completed chemotherapy January 02, 2018. Completed radiation t reatment January 13, 2018. History of biopsy August 2017. TECHNIQUE: Following the intravenous administration of 15.006 mCi of F-18 FDG, whole body images are performed from the skull base to the midthigh. Images are reviewed on the computer in the coronal, axial, and sagittal planes. Reconstructed rotating images are created on independent workstation and reviewed on the computer. A noncontrast CT is performed in conjunction with the PET scan. [facility] ed head and neck PET/CT imaging is also performed. SCAN: Subsequent Scan FINDINGS: HEAD AND NECK: No suspicious hypermetabolic uptake is present. CHEST, MEDIASTINUM, AND HILAR REGION: There is persistent elevated right hemidiaphragm. There is persistent abnormal curvilinear soft tissue anterior superior mediastinum axial image 79 herber suring roughly 3.9 x 1.6 cm just anterior to the ascending aorta, no suspicious hypermetabolic uptake caliber seen on current study. Spiculated nodule anterior right upper lung is redemonstrated measuring 6 x 5 mm axial image 66 dimin ished in size from prior PET/CT, no abnormal hypermetabolic uptake is seen currently. There is persistent right basilar consolidation and/or atelectasis just above diaphragm without abnor mal hypermetabolic uptake currently. Area of hypermetabolic nodule prior PET/CT axial image 79 is not clearly seen on current study near axial image 90. No new areas of abnormal hypermetabolic uptake are present. ABDOMEN AND PELVIS: There is subcentimeter hypermetabolic focus posterior medial right lobe of liver axial image 103, max SUV is 4.25. No additional areas of suspicious hypermetabolic uptake is present. Normal excretion and collecting s ystem and bladder is present. Slightly more prominent uptake noted at stoma site. OSSEOUS STRUCTURES: No suspicious hypermetabolic uptake is present. OTHER CT: There is stable coiled right internal jugular Mediport catheter terminating superior to the SVC within the right brachiocephalic vein before confluence. There is three-vessel coronary artery calcification redemonstrated which is noted marked coronary art murphy disease. Cardiomegaly is redemonstrated. There are persistent calcified right hilar lymph nodes. Left kidney is not identified. There is remnant dilated left ureter redemonstrated. There is stable m ild right-sided pyelocaliectasis without hydroureter. There is redemonstration of right-sided colectomy. Anterior midline lower vertical scar is redemonstr ated Uterus is surgically absent. There is multilevel spurring in the spine. There is multilevel facet arthropathy identified. IMPRESSION: Positive treatment response without abnormal hypermetabolic uptake in thymic malignancy a nd metastatic right lung nodules. Nonspecific subcentimeter right liver lesion is noted on current st udy and warrants short-term imaging monitoring to exclude new developing metastatic lesion.
== END | disposition home or self-care (01) ==
LOC: RADPETMAIN 14:03
PROVIDERS: ATTEND Thoracic Surgery (Cardiothoracic Vascular Surgery)
DX: C37 Malignant neoplasm of thymus (principal); C78.01 Secondary malignant neoplasm of right lung; K76.9 Liver disease, unspecified; Z92.21 Personal history of antineoplastic chemotherapy
CPT/HCPCS: 78815; A9552

== ENCOUNTER → 2018-06-05 | Outpatient (CLI) | payer MEDICARE ==
--- NOTE | 2018-06-05 16:07 | CT ---
EXAMINATION TYPE: CT chest w con DATE OF EXAM: 06/05/2018 COMPARISON: Prior chest CT 02/26/2018, nuclear medicine PET/CT 03/15/2018 HISTORY: Follow up scan per patient CT DLP: 386.4 mGycm Automated exposure control for dose reduction was used. CONTRAST: CT scan of the chest is performed with IV Contrast, patient injected with 100 mL of Isovue 300. FINDINGS: LUNGS: There is interval development of a right pleural effusion and associated atelectasis. Some rig ht upper lobe atelectatic changes are present, correlate to exclude pneumonia. MEDIASTINUM: There are no greater than 1 cm hilar or mediastinal lymph nodes. Calcified right hilar nodes again noted. There are coronary artery calcifications. There is elevation of the right hemidiap hragm as on prior. No pericardial effusion is seen. AORTA: No additional significant abnormality is seen. OTHER: Patient is post left nephrectomy, cystic focus again noted in the paraspinal location in the surgical bed. There are hypodense foci within the liver which have developed in the interval. Lesion on axial image 40 measures 17 mm within the right lobe, posterior right lobe hypoattenuating lesions present on axial image 45 measured 14 and 11 mm respectively. Within the left lobe medial segment the re is a focus not seen on prior which measures 19 mm, smaller lesion present on axial image 48 within the lateral segment left lobe is 15 mm but likely was present on prior, 2 additional lesions in the left lobe lateral segment measure 19 and 15 mm respectively on axial image 52 IMPRESSION: Findings suspicious for metastatic disease to the liver, consider MRI, ultrasound. Right pleural effusion is new.
== END | disposition home or self-care (01) ==
LOC: RADPROMAIN 13:25
PROVIDERS: ATTEND Internal Medicine Critical Care Medicine
DX: C37 Malignant neoplasm of thymus (principal); J90 Pleural effusion, not elsewhere classified
CPT/HCPCS: 82565; 84520; 71260; J1642; Q9967

== ENCOUNTER → 2018-06-23 | Outpatient (CLI) | payer MEDICARE ==
[2018-06-23 09:13] VITALS: BP 128/73; PULSE 101; RESP 17; TEMP 97.8
== END | disposition home or self-care (01) ==
LOC: PROCWHC3 08:48
PROVIDERS: ATTEND Family Medicine
DX: M81.0 Age-related osteoporosis without current pathological fracture (principal)
CPT/HCPCS: 96372; J0897

== ENCOUNTER → 2018-08-04 | Outpatient (CLI) | payer MEDICARE ==
[2018-08-04 14:56] LABS: Basophils % (A) 0 %; Eosinophils # (A) 0.1 k/uL (0-0.7); Eosinophils % (A) 1 %; HCT 38.1 % (34.0-46.0); HGB 11.9 gm/dL (11.4-16.0); Hypochromasia Slight; Lymphocytes # (A) 1.1 k/uL (1.0-4.8); Lymphocytes % (A) 17 %; MCH 29.3 pg (25.0-35.0); MCHC 31.2 g/dL (31.0-37.0); Mean Platelet Volume 6.9; Monocytes # (A) 0.3 k/uL (0-1.0); Monocytes % (A) 5 %; Neutrophils # (A) 4.9 k/uL (1.3-7.7); Neutrophils % (A) 75 %; Platelet Count 195 k/uL (150-450); RBC 4.06 m/uL (3.80-5.40); RDW 15.1 % (11.5-15.5); WBC 6.5 k/uL (3.8-10.6)
[2018-08-04 15:12] LABS: Calcium 9.1 mg/dL (8.4-10.2); Magnesium 2.2 mg/dL (1.6-2.3); Potassium 5.3 mmol/L (3.5-5.1); Uric Acid 5.3 mg/dL (3.7-7.4)
[2018-08-04 15:23] LABS: Amorphous Sediment,Urine Rare /hpf; Appearance,Urine Clear (Clear); Bilirubin,Urine Negative (Negative); Blood,Urine Negative (Negative); Color,Urine Yellow; Glucose,Urine (UA) Negative (Negative); Ketones,Urine Negative (Negative); Leukocyte Esterase,Urine Large (Negative); Mucus,Urine Rare /hpf; Nitrite,Urine Negative (Negative); PH, Urine 5.5 (5.0-8.0); Protein,Urine Trace (Negative); RBC,Urine 3 /hpf (0-5); Specific Gravity,Urine 1.021 (1.001-1.035); Squamous Epithelial Cell,Urine 2 /hpf (0-4); Urobilinogen,Urine <2.0 mg/dL (<2.0); WBC,Urine 18 /hpf (0-5)
[2018-08-04 18:20] LABS: Iron Saturation 18.94 (12.00-45.00)
[2018-08-04 18:29] LABS: Vitamin D 25 Hydroxy 60.3 ng/mL (30.0-100.0)
[2018-08-04 18:42] LABS: Parathyroid Hormone Intact 81.9 pg/mL (14.0-72.0)
== END | disposition home or self-care (01) ==
LOC: LABWHC1 13:19
PROVIDERS: ATTEND Nurse Practitioner Family
DX: N18.3 Chronic kidney disease, stage 3 (moderate) (principal); D63.1 Anemia in chronic kidney disease; E55.9 Vitamin D deficiency, unspecified; E21.3 Hyperparathyroidism, unspecified; M10.9 Gout, unspecified; N39.0 Urinary tract infection, site not specified
CPT/HCPCS: 36415; 80048; 81001; 82306; 82728; 83540; 83550; 83735; 83970; 84100; 84550; 85025